=== PATIENT | female | born 1995 | race Caucasian/White ===

== ENCOUNTER 2019-11-18 15:18 | Outpatient (RCR) | payer OTHER, SELFPAY ==
[2019-11-14] MEDS: RHO(D) IMMUNE GLOBULIN 300 MCG SYRINGE IM (16:15)
== END 2020-02-12 23:59 | disposition home or self-care (01) ==
LOC: ANHLAB 15:18
PROVIDERS: Visit Provider Advanced Practice Midwife
DX: O20.9 Hemorrhage in early pregnancy, unspecified (principal); Z29.13 Encounter for prophylactic Rho(D) immune globulin; O36.0990 Maternal care for other rhesus isoimmunization, unspecified trimester, not applicable or unspecified; Z3A.00 Weeks of gestation of pregnancy not specified
CPT/HCPCS: 36415; 84702; 90384; 96372; J2790

== ENCOUNTER 2020-08-18 16:25 | Emergency (ER) | payer BC, MEDICAID, SELFPAY ==
[2020-08-18 16:28] VITALS: BP 149/72; PULSE 88; RESP 17; TEMP 36.6; O2SAT 98
--- NOTE | 2020-08-18 16:36 | ED.FEMALEGU ---
HPI - Female Genitourinary General Chief complaint: Vaginal Bleeding Stated complaint: , vag bleeding Time Seen by Provider: 08/18/20 16:29 History of Present Illness HPI Narrative: 2 positive home tests. Began having vaginal bleeding today. Slightly heavier than a normal period. She is not supposed to start her period for 2 days. She has mild pelvic cramping as well. Related Data Allergies Allergy/AdvReac Type Severity Reaction Status Date / Time No Known Allergies Allergy Verified 08/18/20 16:27 Review of Systems Review of Systems: All systems reviewed & are unremarkable except as noted in HPI and below PMFSH Past Medical History Medical History Spontaneous Surgical History Surgical History No history of previous surgery Social History Social History Smoking status: Never smoker Alcohol intake: former Gender identity (if verbalized by the patient): Female Exam Const: General: healthy appearing, no acute distress and alert Orientation/consciousness: patient oriented x3 HENMT: Head: normal to inspection Resp: Effort & Inspection: normal respiratory effort Auscultation: clear to auscultation bilaterally, no rales, no rhonchi and no wheezes Cardio: Jugular venous distension: no JVD Rate: regular rate Rhythm: regular rhythm Heart sounds: no murmurs GI: Inspection: non-distended GI Palp: Yes Soft to palpation and No Tenderness to palpation present (GI) Skin: General skin exam: normal color Neuro: General: patient oriented x3 and moves all extremities Speech: normal speech Extrem: General: no edema Psych: Appearance: well kempt Affect: normal affect Course Vital Signs Vital signs: Vital Signs Temperature 36.6 C 08/18/20 16:28 Pulse Rate 88 08/18/20 16:28 Respiratory Rate 17 08/18/20 16:28 Blood Pressure 149/72 H 08/18/20 16:28 Pulse Oximetry 98 08/18/20 16:28 Temperature 36.6 C 08/18/20 16:28 Pulse Rate 88 08/18/20 16:28 Respiratory Rate 17 08/18/20 16:28 Blood Pressure 149/72 H 08/18/20 16:28 Pulse Oximetry 98 08/18/20 16:28 MDM - Female Genitourinary MDM Narrative Medical decision making narrative: Urine preg negative, Quant undetectable. Almost certainly false positives. She seems to be starting a normal period. Lab Data Attestation: I reviewed the patient's lab results. Result diagrams: 08/18/20 16:39 Labs: Lab Results 08/18/20 08/18/20 08/18/20 Range/Units 16:39 16:39 16:39 WBC 7.8 (4.5-10.0) K/mm3 RBC 4.42 (4.2-5.4) M/mm3 Hgb 12.3 (12.0-15.0) g/dL Hct 37.3 (37.0-47.0) % MCV 84.4 (80-100) fl MCH 27.8 (26-34) pg MCHC 33.0 (32-36) g/dl RDW 12.9 (11.5-14.5) % Plt Count 291 (150-375) k/mm3 MPV 11.7 H (7.4-10.4) fl Immature Gran % (Auto) 0.3 (0-0.5) % Neut % (Auto) 61.0 (45.5-73.1) % Lymph % (Auto) 29.2 (18.3-44.2) % Baldwin % (Auto) 6.4 (2.6-8.5) % Eos % (Auto) 2.8 (0-4.4) % Baso % (Auto) 0.3 (0.2-1.2) % Lymph # (Auto) 2.27 (0.9-3.2) K/mm3 Baldwin # (Auto) 0.5 (0.1-0.6) K/mm3 Eos # (Auto) 0.2 (0-0.3) K/mm3 Baso # (Auto) 0.0 (0.0-0.1) K/mm3 Abs Immat Gran (auto) 0.02 (0.00-0.031) K/mm3 Absolute Neuts (auto) 4.8 (1.3-6.7) K/mm3 Absolute Nucleated RBC 0.0 (0.0-0.012) K/mm3 Nucleated RBC % 0.0 (0.0-0.2) % Beta HCG, Quant < 2.39 mIU/ML Blood Type A Negative Antibody Screen Negative Screen Not Reportable Baby's Blood Type Not Reportable Baby's [place] Not Reportable Doses of RhIg Required 0 Discharge Plan Discharge Clinical Impression: Vaginal bleeding Patient Disposition: Home, Self-Care Condition: Stable Follow-up/Referrals: Chong Naylor MD [Primary Care Pro
[2020-08-18 16:45] LABS: Basophils Percent Auto 0.3 % (0.2-1.2); Eosinophils Absolute Auto 0.2 K/mm3 (0-0.3); Eosinophils Percent Auto 2.8 % (0-4.4); Hematocrit 37.3 % (37.0-47.0); Hemoglobin 12.3 g/dL (12.0-15.0); Immature Granulocyte Absolute 0.02 K/mm3 (0.00-0.031); Immature Granulocyte Percent A 0.3 % (0-0.5); Lymphocytes Absolute Auto 2.27 K/mm3 (0.9-3.2); Lymphocytes Percent Auto 29.2 % (18.3-44.2); Mean Corpuscular Hemoglobin 27.8 pg (26-34); Mean Corpuscular Volume 84.4 fl (80-100); Mean Platelet Volume 11.7 fl (7.4-10.4); Monocytes Absolute Auto 0.5 K/mm3 (0.1-0.6); Monocytes Percent Auto 6.4 % (2.6-8.5); Neutrophils Absolute Auto 4.8 K/mm3 (1.3-6.7); Platelet Count Result 291 k/mm3 (150-375); Red Blood Count 4.42 M/mm3 (4.2-5.4); Red Cell Distribution Width 12.9 % (11.5-14.5); White Blood Count 7.8 K/mm3 (4.5-10.0)
[2020-08-18 17:14] LABS: Beta HCG Quantitative < 2.39 mIU/ML
== END 2020-08-18 18:05 | disposition home or self-care (01) ==
PROVIDERS: Emergency Provider Emergency Medicine; PCP Obstetrics & Gynecology
DX: N93.9 Abnormal uterine and vaginal bleeding, unspecified (principal)
CPT/HCPCS: 36415; 81025; 84702; 85025; 85461; 99284

== ENCOUNTER 2021-04-18 12:59 | Outpatient (RCR) | payer BC, MEDICAID, SELFPAY ==
[2021-04-16 11:38] LABS: Beta HCG Quantitative 266.06 mIU/ML
[2021-04-16] MEDS: RHO(D) IMMUNE GLOBULIN 300 MCG/2 ML SYRINGE IM (17:58)
[2021-04-21 08:46] LABS: Progesterone 28.6 ng/mL (***)
== END 2021-07-15 23:59 | disposition home or self-care (01) ==
LOC: ANHLAB 12:59
PROVIDERS: PCP Obstetrics & Gynecology; Visit Provider Obstetrics & Gynecology
DX: O20.0 Threatened abortion (principal); O36.0190 Maternal care for anti-D [Rh] antibodies, unspecified trimester, not applicable or unspecified; Z29.13 Encounter for prophylactic Rho(D) immune globulin; Z3A.00 Weeks of gestation of pregnancy not specified
CPT/HCPCS: 36415; 84144; 84702; 85461; 86880; 86902; 90384; 96372; J2790

== ENCOUNTER 2021-07-30 10:53 | Outpatient (RCR) | payer BC, SELFPAY ==
[2021-07-30] MEDS: RHO(D) IMMUNE GLOBULIN 300 MCG/2 ML SYRINGE IM (17:12)
== END 2021-07-30 11:00 | disposition home or self-care (01) ==
LOC: ANHLAB 10:53
PROVIDERS: PCP Obstetrics & Gynecology; Visit Provider Obstetrics & Gynecology
DX: Z29.13 Encounter for prophylactic Rho(D) immune globulin (principal); O26.859 Spotting complicating pregnancy, unspecified trimester; Z3A.00 Weeks of gestation of pregnancy not specified
CPT/HCPCS: 36415; 85461; 90384; 96372; J2790

== ENCOUNTER 2021-10-24 12:49 | Outpatient (RCR) | payer BC, SELFPAY ==
[2021-10-24] MEDS: RHO(D) IMMUNE GLOBULIN 300 MCG/2 ML SYRINGE IM (15:24)
== END 2021-10-24 12:50 | disposition home or self-care (01) ==
LOC: ANHLAB 12:49
PROVIDERS: PCP Obstetrics & Gynecology; Visit Provider Obstetrics & Gynecology
DX: Z29.13 Encounter for prophylactic Rho(D) immune globulin (principal); O36.0130 Maternal care for anti-D [Rh] antibodies, third trimester, not applicable or unspecified; Z3A.00 Weeks of gestation of pregnancy not specified
CPT/HCPCS: 36415; 85461; 90384; 96372; J2790

== ENCOUNTER 2021-12-23 16:53 | Inpatient (IN) | payer BC, SELFPAY ==
[2021-12-23] VITALS (64 sets, daily range): BP systolic 76–144; BP diastolic 45–94; PULSE 68–117; RESP 18–20; TEMP 36.5–36.8; O2SAT 98–100
--- NOTE | 2021-12-23 16:53 | LDADM ---
This patient, Felicia Wilder, was admitted to Labor/Delivery/Recovery 108 on 12/23/21 at 16:53. Plans for labor, pain management and were discussed with patient. Patient/family oriented to hospital policies and general routines including ID bracelet, bed and alarms, visiting hours, pain management, procedures, bathroom and other care routines, personal items, smoking policy, room service/diet and guest tray routines, security routines, and visiting hours. Patient/Family are encouraged to report perceived risks to care and to ask questions if they do not understand what they are told or what they should do. See OBIX for further documentation.
[2021-12-23 17:56] LABS: Basophils Percent Auto 0.1 % (0.2-1.2); Eosinophils Absolute Auto 0.1 K/mm3 (0-0.3); Eosinophils Percent Auto 0.8 % (0-4.4); Hematocrit 35.2 % (37.0-47.0); Immature Granulocyte Absolute 0.05 K/mm3 (0.00-0.031); Immature Granulocyte Percent A 0.5 % (0-0.5); Lymphocytes Percent Auto 12.9 % (18.3-44.2); Mean Corpuscular HGB Conc 34.1 g/dl (32-36); Mean Corpuscular Hemoglobin 30.2 pg (26-34); Mean Corpuscular Volume 88.4 fl (80-100); Mean Platelet Volume 12.8 fl (7.4-10.4); Monocytes Absolute Auto 0.4 K/mm3 (0.1-0.6); Monocytes Percent Auto 4.4 % (2.6-8.5); Neutrophils Absolute Auto 8.2 K/mm3 (1.3-6.7); Neutrophils Percent Auto 81.3 % (45.5-73.1); Platelet Count Result 183 k/mm3 (150-375); Red Blood Count 3.98 M/mm3 (4.2-5.4); Red Cell Distribution Width 12.5 % (11.5-14.5)
[2021-12-23] MEDS: OXYTOCIN 30 UNITS/NS 500 ML 30 UNITS/500 ML BAG IV CONT (18:07)
[2021-12-23] MEDS: AMPICILLIN 2 GM/NS 100 ML 2 GM/100 ML BAG IVPB (18:08)
[2021-12-23] MEDS: LACTATED RINGERS 1,000 ML 125 ML IV CONT ×3 (18:08→23:45)
--- NOTE | 2021-12-23 18:09 | P.PNAN_ITS ---
Anes - Eval Pre Procedure Procedure: labor epidural Date/Time: 12/23/21 18:09 Surgeon: enzo Pre Op Diagnosis: IOL Patient Data Age: 26 Gender: F Height: Weight: Last Vital Signs Pulse 95 12/23/21 18:01 BP 120/73 12/23/21 18:01 Allergies Allergy/AdvReac Type Severity Reaction Status Date / Time No Known Allergies Allergy Verified 08/18/20 16:27 Home Medications Medication Instructions Recorded Confirmed Type PNV cmb#95-ferrous fumarate-FA 1 tablet PO DAILY 11/21/21 11/21/21 History [] ferrous sulfate [Iron (ferrous 325 mg PO DAILY 11/21/21 11/21/21 History sulfate)] Laboratory Tests 12/23/21 12/23/21 17:33 17:33 WBC 10.0 K/mm3 K/mm3 (4.5-10.0) RBC 3.98 M/mm3 L M/mm3 (4.2-5.4) Hgb 12.0 g/dL g/dL (12.0-15.0) Hct 35.2 % L % (37.0-47.0) MCV 88.4 fl fl (80-100) MCH 30.2 pg pg (26-34) MCHC 34.1 g/dl g/dl (32-36) RDW 12.5 % % (11.5-14.5) Plt Count 183 k/mm3 k/mm3 (150-375) MPV 12.8 fl H fl (7.4-10.4) Immature Gran % (Auto) 0.5 % % (0-0.5) Neut % (Auto) 81.3 % H % (45.5-73.1) Lymph % (Auto) 12.9 % L % (18.3-44.2) Sunflower % (Auto) 4.4 % % (2.6-8.5) Eos % (Auto) 0.8 % % (0-4.4) Baso % (Auto) 0.1 % L % (0.2-1.2) Lymph # (Auto) 1.30 K/mm3 K/mm3 (0.9-3.2) Sunflower # (Auto) 0.4 K/mm3 K/mm3 (0.1-0.6) Eos # (Auto) 0.1 K/mm3 K/mm3 (0-0.3) Baso # (Auto) 0.0 K/mm3 K/mm3 (0.0-0.1) Abs Immat Gran (auto) 0.05 K/mm3 H K/mm3 (0.00-0.031) Absolute Neuts (auto) 8.2 K/mm3 H K/mm3 (1.3-6.7) Absolute Nucleated RBC 0.0 K/mm3 K/mm3 (0.0-0.012) Nucleated RBC % 0.0 % % (0.0-0.2) RPR Pending Patient hx anesthesia problems: none Family hx anesthesia problems: none Results Review: All pre-operative results and documents have been reviewed as part of the pre-operative evaluation. [facility] Past Medical History Medical History Spontaneous Surgical History Surgical History No history of previous surgery Family History Family History (Updated 11/21/21 @ 15:45 by Parminder Johnson RN) Father Diabetes mellitus Social History Social History Smoking status: Never smoker Alcohol intake: former Substance use: never Gender identity (if verbalized by the patient): Female Spiritual care concerns: No Exam Day of Procedure 12/23/21 18:09
[2021-12-23] MEDS: fentaNYL CITRATE INJ (*CRX) 100 MCG/2 ML VIAL 50 MCG IV PUSH (21:44)
[2021-12-23] MEDS: AMPICILLIN 1 GM/NS 50 ML 1 GM/50 ML BAG IVPB (22:15)
[2021-12-24] VITALS (168 sets, daily range): BP systolic 91–141; BP diastolic 62–92; PULSE 72–143; RESP 16–18; TEMP 36.1–38.1; O2SAT 97–100; BMI 32.0
[2021-12-24] MEDS: LACTATED RINGERS 1,000 ML 125 ML IV CONT ×2 (00:33→06:08)
[2021-12-24] MEDS: AMPICILLIN 1 GM/NS 50 ML 1 GM/50 ML BAG IVPB ×2 (02:02→06:04)
[2021-12-24] MEDS: ONDANSETRON INJ 4 MG/2 ML VIAL IV PUSH (05:22)
[2021-12-24 06:02] LABS: Rapid Plasma Reagin Non-Reactive (NonReactive)
--- NOTE | 2021-12-24 07:30 | PM.IMHP ---
H&P: HPI History of Present Illness Date/Time: 12/24/21 07:30 Chief Complaint: induction of labor Narrative: Felicia is a 26yo at40.2 for induction. uncomplicated except GBS pos. Pitocin since last night. Is now complete and +1. Review of Systems Review of Systems: All systems reviewed & are unremarkable except as noted in HPI and below PMFSH Past Medical History Medical History Spontaneous Surgical History Surgical History No history of previous surgery Family History Family History (Updated 11/21/21 @ 15:45 by Parminder Johnson RN) Father Diabetes mellitus Social History Social History Smoking status: Never smoker Alcohol intake: former Substance use: never Gender identity (if verbalized by the patient): Female Spiritual care concerns: No Meds Home Medications and Allergies Home Medications Medication Instructions Recorded Confirmed Type PNV cmb#95-ferrous fumarate-FA 1 tablet PO DAILY 11/21/21 11/21/21 History [] ferrous sulfate [Iron (ferrous 325 mg PO DAILY 11/21/21 11/21/21 History sulfate)] Allergies Allergy/AdvReac Type Severity Reaction Status Date / Time No Known Allergies Allergy Verified 08/18/20 16:27 Vital Signs Vital Signs - 24 hr 12/23/21 17:18 12/23/21 17:38 12/23/21 17:46 Temperature Pulse Rate 104 H 96 94 Respiratory Rate Blood Pressure 132/77 128/78 131/76 Pulse Oximetry 12/23/21 18:00 12/23/21 18:01 12/23/21 18:31 Temperature 98.3 F Pulse Rate 95 86 Respiratory Rate Blood Pressure 120/73 136/86 Pulse Oximetry 12/23/21 18:46 12/23/21 19:01 12/23/21 19:31 Temperature Pulse Rate 89 87 82 Respiratory Rate Blood Pressure 133/78 141/89 H 124/73 Pulse Oximetry 12/23/21 19:46 12/23/21 20:00 12/23/21 20:01 Temperature 97.7 F Pulse Rate 78 87 Respiratory Rate 18 Blood Pressure 134/83 128/67 Pulse Oximetry 12/23/21 20:32 12/23/21 20:47 12/23/21 21:01 Temperature Pulse Rate 77 75 85 Respiratory Rate Blood Pressure 76/51 L 121/66 130/79 Pulse Oximetry 12/23/21 21:16 12/23/21 22:03 12/23/21 22:04 Temperature Pulse Rate 85 96 95 Respiratory Rate Blood Pressure 132/68 124/62 134/89 Pulse Oximetry 98 12/23/21 22:06 12/23/21 22:08 12/23/21 22:11 Temperature Pulse Rate 78 97 87 Respiratory Rate Blood Pressure 144/72 H 113/62 119/71 Pulse Oximetry 99 12/23/21 22:13 12/23/21 22:16 12/23/21 22:18 Temperature Pulse Rate 95 84 88 Respiratory Rate Blood Pressure 104/83 121/76 127/76 Pulse Oximetry 100 99 12/23/21 22:21 12/23/21 22:23 12/23/21 22:26 Temperature Pulse Rate 77 77 80 Respiratory Rate Blood Pressure 122/61 122/57 L 114/61 Pulse Oximetry 99 12/23/21 22:28 12/23/21 22:31 12/23/21 22:33 Temperature Pulse Rate 77 75 75 Respiratory Rate Blood Pressure 121/67 122/67 118/66 Pulse Oximetry 99 100 12/23/21 22:36 12/23/21 22:38 12/23/21 22:41 Temperature Pulse Rate 80 82 82 Respiratory Rate Blood Pressure 119/67 117/66 124/74 Pulse Oximetry 99 12/23/21 22:43 12/23/21 22:46 12/23/21 22:48 Temperature Pulse Rate 72 75 81 Respiratory Rate Blood Pressure 120/62 117/68 122/76 Pulse Oximetry 99 99 12/23/21 22:51 12/23/21 22:53 12/23/21 22:56 Temperature Pulse Rate 79 79 117 H Respiratory Rate Blood Pressure 130/78 130/74 131/83 Pulse Oximetry 100 12/23/21 22:58 12/23/21 23:01 12/23/21 23:03 Temperature Pulse Rate 79 78 71 Respiratory Rate Blood Pressure 123/69 127/74 119/64 Pulse Oximetry 100 100 12/23/21 23:06 12/23/21 23:08 12/23/21 23:11 Temperature Pulse Rate 86 91 78 Respiratory Rate Blood Pressure 122/68 129/80 123/71 Pulse Oximetry 100
--- NOTE | 2021-12-24 09:51 | PM.OBPRVD ---
OB - Delivery Note Procedure Delivery date: 12/24/21 Procedure: normal spontaneous vaginal delivery Events: Elective Induction of Labor Induction method: Per Pitocin Protocol Delivery monitor: External FHT and External Uterine Laceration Description: Perineal - 2nd Degree Delivery repair: vicryl Quantitative Blood Loss (ml): 225 Anesthesia type: Epidural Disposition: floor Narrative: With adequate expulsive efforts by the mother, the baby's head was delivered OA. The baby's anterior shoulder was delivered under the pubic symphysis without difficulty. The posterior shoulder and the rest of the baby delivered without difficulty. The infant was placed on the mothers chest and suctioned and stimulated. The cord was clamped and cut after 60 seconds. Mother and baby both stable. After delivery of the placenta, trailing retained membranes were identified and removed in 4 sections with a ring forceps. [place] Baby Date of : 12/24/21 Time of : 09:32 Weeks of gestation at delivery: 40 Infant gender: Female Weight (pounds): 7 Weight (ounces): 8 presentation: vertex Placenta delivery description: Spontaneous and Manual Removal (of trailing membranes) Cord Vessel Description: 3 Vessels and Delayed Cord Clamping score one minute: 9 score five minutes: 9
[2021-12-24] MEDS: OXYTOCIN 30 UNITS/NS 500 ML 30 UNITS/500 ML BAG 125 UNITS IV CONT (10:22)
[2021-12-24] MEDS: WITCH HAZEL 40 PADS 1 PAD TOPICAL (10:49)
[2021-12-24] MEDS: BENZOCAINE 20% AER SPR (*SP) 56 GM CAN 1 SPRAY TOPICAL (10:50)
[2021-12-24] MEDS: IBUPROFEN 600 MG TABLET PO ×2 (10:50→16:35)
--- NOTE | 2021-12-24 15:27 | OBPPTRN ---
Patient transferred to post room #284 via wheelchair. Support person present. Oriented to unit, room, information board, rooming in, admission packet and security measures. Patient verbalizes understanding.
[2021-12-24] MEDS: DOCUSATE SODIUM 100 MG CAPSULE PO (16:35)
[2021-12-24] MEDS: ACETAMINOPHEN 325 MG TABLET 650 MG PO (16:35)
[2021-12-25] MEDS: IBUPROFEN 600 MG TABLET PO ×4 (01:17→22:41)
[2021-12-25] MEDS: ACETAMINOPHEN 325 MG TABLET 650 MG PO ×4 (01:18→22:43)
[2021-12-25 04:45] VITALS: BP 119/81; PULSE 91; RESP 16; TEMP 36.6
[2021-12-25 05:16] LABS: Hematocrit 28.1 % (37.0-47.0); Hemoglobin 9.7 g/dL (12.0-15.0)
--- NOTE | 2021-12-25 06:54 | P.PNOB_ITS ---
OB - PN: Subj Subjective Date/time seen: 12/25/21 06:54 Patient comments: no complaints and pain well controlled baby status: doing well and bottle feeding well [place] feeding status: exclusively bottle feeding OB - PN: Obj Data Labs CBC & Chem 7: 12/25/21 04:58 Labs: Laboratory Results - last 24 hr 12/25/21 12/25/21 04:58 04:58 Hgb 9.7 L Hct 28.1 L Blood Type A Negative Antibody Screen Negative OB - PN A/P Assessment and Plan (1) , delivered: Code(s): O80 - Encounter for full-term uncomplicated delivery Status: Acute Plan day: 1 Plan: routine care Time Spent With Patient Time: Total time spent is greater than 50% in coordination of care (as documented) at patient's floor/unit and/or counseling patient: Time with patient: less than 15 minutes Exam Narrative: NAD abdomen soft, nontender, fundus firm below the umbilicus Extremities nontender, 1+ edema
--- NOTE | 2021-12-25 07:00 | PC.NURSE ---
PT introductions made and plan of care discussed per post , pain management, bottle feeding, daily care activities. PT and spouse both recipients of such instructions. no barriers to learning identified and pt received instructions per one to one discussion, mom baby care guide and demonstrations for this shift. Pt verbalized understanding of such care.
--- NOTE | 2021-12-25 07:34 | WPDANLDPN2 ---
Anes-Prog Note L&D Date/Time: 12/25/21 07:34 Comfortable throughout: labor and delivery Neuraxial method: epidural Epidural/Spinal procedure site: clean & non-tender Neuro status: Neuro function grossly intact. Cardiovascular status: normal Respiratory status: normal Airway patency: baseline Mental status: baseline Post-Op hydration status: normal Vital Signs: Last Vital Signs Temp 36.6 C 12/25/21 04:45 Pulse 91 12/25/21 04:45 Resp 16 12/25/21 04:45 BP 119/81 12/25/21 04:45 Pulse Ox 99 12/24/21 16:30 Pain score (VAS): 11/25 I/O: Intake & Output 12/24/21 12/24/21 12/25/21 15:59 23:59 07:59 Intake Total 1600 Output Total 225 Balance 1375 Post-procedural complaints: none Patient feedback: Patient satisfied with anesthetic care.
[2021-12-25 09:30] VITALS: BP 127/83; PULSE 79; RESP 18; TEMP 36.7; O2SAT 98
[2021-12-25] MEDS: DOCUSATE SODIUM 100 MG CAPSULE PO ×2 (09:30→16:24)
[2021-12-25] MEDS: POLYSACCHARIDE IRON COMPLEX 150 MG CAPSULE PO ×2 (09:30→16:26)
[2021-12-25] MEDS: RHO(D) IMMUNE GLOBULIN 300 MCG/2 ML SYRINGE IM (10:26)
[2021-12-25] MEDS: DIBUCAINE 1% OINTMENT 30 GM TUBE 1 APPLIC TOPICAL (10:26)
[2021-12-25 18:31] VITALS: BP 119/75; PULSE 82; RESP 18; TEMP 36.7
[2021-12-26 07:30] VITALS: BP 136/94; PULSE 71; RESP 18; TEMP 37.7; O2SAT 99
--- NOTE | 2021-12-26 07:47 | PM.OBPNVD ---
OB - PN: Subj Subjective Date/time seen: 12/26/21 07:47 Patient comments: no complaints baby status: doing well OB - PN: Obj Data Labs CBC & Chem 7: 12/25/21 04:58 Labs: Laboratory Results - last 24 hr 12/25/21 04:58 Blood Type A Negative Antibody Screen Negative Screen Negative Baby's Blood Type A pos Baby's [place] Negative Doses of RhIg Required 1 OB - PN A/P Plan day: 2 Plan: routine care and discharge home (F/U in 4 weeks) Time Spent With Patient Time: Total time spent is greater than 50% in coordination of care (as documented) at patient's floor/unit and/or counseling patient: Time with patient: less than 15 minutes Review of Systems Review of Systems: All systems reviewed & are unremarkable except as noted in HPI and below Exam Narrative: Fundus firm and vaginal flow controlled. No lower ext redness, warmth, or edema. Negative homans. Const: General: comfortable Chest: Breast/axilla inspection: normal inspection of the breasts Resp: Effort & Inspection: normal respiratory effort Cardio: Rate: regular rate GI: GI Palp: Yes Soft to palpation Psych: Appearance: grossly normal Affect: normal affect Attitude: cooperative Thought content: Yes Normal thought content present Judgement: Good judgement present (Psych)
[2021-12-26] MEDS: DOCUSATE SODIUM 100 MG CAPSULE PO (08:57)
[2021-12-26] MEDS: POLYSACCHARIDE IRON COMPLEX 150 MG CAPSULE PO (08:58)
[2021-12-26] MEDS: IBUPROFEN 600 MG TABLET PO (08:58)
[2021-12-26] MEDS: ACETAMINOPHEN 325 MG TABLET 650 MG PO (08:59)
[2021-12-26 10:09] VITALS: BP 128/87
--- NOTE | 2021-12-26 10:18 | PC.NURSE ---
Patient to view the discharge video Mother & Baby Care, The First Two Weeks online. Patient was given the opportunity and encouraged to ask questions. Patient verbalized understanding of information shared and has been given the mother/baby guide for home reference.
[2021-12-27 10:24] VITALS: BP 142/84; PULSE 75; RESP 20; TEMP 37.4; O2SAT 100
--- NOTE | 2022-01-23 07:42 | P.DS_ITS ---
DS: Admitting Diagnosis Discharge Date 12/26/21 Admitting Diagnosis Labor OB - DS: Summary OB Procedures : None OB Procedures Intrapartum: Spontaneous Vag Delivery OB Procedures: : None Time Spent with Patient Time attestation: Total time spent providing and/or coordinating discharge services: Discharge Plan Discharge Attending physician on discharge: Linda Edgar Consulting providers: Theodora Major Discharging Clinician: Theodora Major Patient Disposition: Home, Self-Care Activity: pelvic rest Diet: as tolerated Discharge Instructions: Education: Mom and Baby Guide Given to: Mother Follow-Up: Call your delivering provider's office for an appointment to be seen in: 4 Weeks Mom and baby should come to the [facility] for the follow-up appointment. Appointment Date/Time: December 27, 2021 at 10:00 am What to expect at your follow-up visit: Physical Assessment Call [phone] if you are unable to keep your appointment time. BREAST CARE: * Bottle Feeding: * May apply ice packs PERINEAL CARE: * Until bleeding stops, use your alex bottle after urinating * Change your pad frequently throughout the day * You may take sitz baths several times a day (fill your bathtub with warm water and soak for 20 minutes.) Do NOT bathe in the water * No tub baths until seen by your physician - You may shower ACTIVITY: * Rest as much as possible. * Do not exercise or lift anything heavier than your baby (such as laundry or other children.) * Avoid stairs or driving as much as possible. * Do not put anything into the vagina. No douching, tampons, or sexual activity until seen by physician. NOTIFY PHYSICIAN IF YOU HAVE ANY QUESTIONS OR IF ANY OF THE FOLLOWING SYMPTOMS OCCUR: * If your episiotomy/perineum becomes red, swollen, or more painful than what you have experienced in the hospital. * If your vaginal bleeding becomes foul smelling. * If your vaginal bleeding becomes more heavy than a period or if your bleeding changes from pink to bright red. However, you may pass an occasional walnut- sized clot once or twice for the first week . * If you experience a sharp, shooting pain in you calves. * If you discover a hard, reddened area on your breast or if you experience flu- like symptoms. DIET: * Eat regular, well-balanced meals. * Drink plenty of fluids daily. If , drink to thirst. Patient Instructions: Antibiotic Form Stand Alone Forms: General Discharge Information Follow-up/Referrals: Linda Edgar MD [Physician] - Discharge Medications: Continued ferrous sulfate [Iron (ferrous sulfate)] 325 mg (65 mg iron) Tablet 325 mg PO DAILY RF: 0 PNV cmb#95-ferrous fumarate-FA [] 28 mg iron- 800 mcg Tablet 1 tablet PO DAILY RF: 0 Date of admission: 12/23/21 16:53 Primary Care Provider: PHYSICIAN,TEXTILE CHEMIST Admitting Provider: Linda Edgar Attending physician on admission: Linda Edgar Condition: Stable
== END 2021-12-26 11:16 | disposition home or self-care (01) | DRG 807 ==
LOC: ANHLDR 17:21 → ANHOB2 12-24 14:40
PROVIDERS: Admitting Provider Obstetrics & Gynecology; Visit Provider Obstetrics & Gynecology
DX: O99.824 Streptococcus B carrier state complicating childbirth (principal); Z37.0 Single live birth; O76 Abnormality in fetal heart rate and rhythm complicating labor and delivery; O70.1 Second degree perineal laceration during delivery; Z3A.40 40 weeks gestation of pregnancy; O73.0 Retained placenta without hemorrhage
CPT/HCPCS: 36415; 85014; 85018; 85025; 85461; 86592; 86850; 86900; 86901; 90384; A9270; J0131; J0290; J2405; J2590; J2790; J2795; J3010; J7120

== ENCOUNTER 2023-06-29 12:00 | Outpatient (RCR) | payer BC, SELFPAY ==
[2023-06-29] MEDS: RHO(D) IMMUNE GLOBULIN 300 MCG/2 ML SYRINGE IM (16:47)
== END 2023-09-27 23:59 | disposition home or self-care (01) ==
LOC: ANHLAB 12:00
PROVIDERS: Visit Provider Obstetrics & Gynecology
DX: Z29.13 Encounter for prophylactic Rho(D) immune globulin (principal); O36.0130 Maternal care for anti-D [Rh] antibodies, third trimester, not applicable or unspecified; Z3A.00 Weeks of gestation of pregnancy not specified
CPT/HCPCS: 36415; 85461; 86850; 86900; 86901; 90384; 96372; J2790

== ENCOUNTER 2023-09-16 13:35 | Outpatient (RCR) | payer BC, SELFPAY ==
[2023-09-16 14:18] LABS: Hematocrit 34.3 % (37.0-47.0); Hemoglobin 11.4 g/dL (12.0-15.0)
[2023-09-16 15:08] LABS: HIV 1/2 Ab P24 Ag Result Negative (Negative)
[2023-09-17] MEDS: RHO(D) IMMUNE GLOBULIN 300 MCG/2 ML SYRINGE IM (14:00)
== END 2023-12-15 23:59 | disposition home or self-care (01) ==
LOC: ANHLAB 13:35
PROVIDERS: Visit Provider Advanced Practice Midwife
DX: Z11.4 Encounter for screening for human immunodeficiency virus [HIV] (principal); Z29.13 Encounter for prophylactic Rho(D) immune globulin; O36.0190 Maternal care for anti-D [Rh] antibodies, unspecified trimester, not applicable or unspecified; Z3A.00 Weeks of gestation of pregnancy not specified
CPT/HCPCS: 36415; 85014; 85018; 85461; 86703; 86850; 86880; 86900; 86901; 86902; 90384; 96372; G0432; J2790

== ENCOUNTER 2023-10-23 10:32 | Emergency (ER) | payer BC, SELFPAY ==
[2023-10-23] VITALS (11 sets, daily range): BP systolic 120–135; BP diastolic 66–86; PULSE 74–113; RESP 14–20; TEMP 36.4–36.8; O2SAT 95–98
--- NOTE | 2023-10-23 11:47 | ECG_ITS ---
Measurements Intervals [place] Rate: 83 P: 37 NH: 166 QRS: 85 QRSD: 99 T: 38 QT: 341 QTc: 401 Interpretive Statements SINUS RHYTHM NO PREVIOUS ECG AVAILABLE FOR COMPARISON Electronically Signed On 10-24-2023 13:01:20 [employer]GER [employer]OL[employer] by Familia Rudolph M.D.
--- NOTE | 2023-10-23 12:21 | ED.SOB ---
HPI - SOB/Dyspnea General Chief Complaint: Shortness of Breath/Dyspnea Stated Complaint: diff breathing x 2 weeks/36 weeks preg Time Seen by Provider: 10/23/23 12:05 History of Present Illness HPI Narrative: The patient is a 28-year-old female, approximately 36 weeks here with shortness of breath. Patient notes that she has been having some intermittent worsening shortness of breath over the last couple of months. She has discussed it with her OBGYN who has advised her to follow it and present to the emergency department if they worsen. She notes that a couple of weeks ago she had upper respiratory infection which seemed to improve initially but began again over the last 2 days. She does note that she has had some sick contacts at home with other family members and they seemed to be bouncing around respiratory symptoms to each other. She denies any associated chest pain, lightheadedness, leg swelling. No prior history of cardiac disease or cardiomyopathy during her prior that she is aware of. She denies fever chills. She has had a productive cough as well as some nasal congestion. No prior PE or DVT. Related Data Home Medications Medication Instructions Recorded Confirmed ferrous sulfate 325 mg (65 mg 325 mg PO DAILY 11/21/21 11/21/21 iron) tablet (Iron (ferrous sulfate)) vit no.95-ferrous 1 tablet PO DAILY 11/21/21 11/21/21 fumarate 28 mg-folic acid 800 mcg tablet () Allergies Allergy/AdvReac Type Severity Reaction Status Date / Time No Known Allergies Allergy Verified 12/27/21 15:44 Review of Systems Review of Systems: All systems reviewed & are unremarkable except as noted in HPI and below PMFSH Past Medical History Medical History (Updated 10/23/23 @ 14:52 by Yamile Rayo MD) Spontaneous Surgical History Surgical History (System 12/27/21 @ 15:44 by Rosalio Gregorio) No history of previous surgery Family History Family History (System 12/27/21 @ 15:44 by Rosalio Gregorio) Father Diabetes mellitus Social History Social History (System 12/27/21 @ 15:44 by Rosalio Gregorio) Smoking status: Never smoker Alcohol intake: former Substance use: never Gender identity (if verbalized by the patient): Female Spiritual care concerns: No Exam Narrative: GENERAL: Well-appearing, well-nourished, and in no acute distress. HEAD: Normocephalic, atraumatic. EYES: PERRLA and EOMI. ENT: Nares clear. Nasal congestion present. Mucous membranes moist. NECK: Supple. CHEST: Good air movement bilaterally, faint expiratory wheeze in the right upper lobe. No respiratory distress. HEART: Regular rate and rhythm. Normal peripheral pulses. ABDOMEN: Soft, nontender, Gravid EXTREMITIES: Normal range of motion. No lower extremity edema, no calf tenderness. SKIN: Warm, dry, no rash. NEURO: No focal deficits. Alert and oriented x3. PSYCH: Normal mood and affect. Course Course Emergency Course: Chart review performed. Patient is 36 weeks and having sob worse over the last 2 months after a URI. Feels as though she is wheezing. Triage vitals show some tachycardia at 113 which improved to 91, normal range BPs. O2 saturation 96-97% on room air. Only other notes in our system recently are OBGYN reports over a year ago. Patient seen evaluated, nontoxic appearing. She does have a wheeze present in the right upper lobe. extensive discussion regarding plan of care given desire to minimize radiation during . Most likely patient has a viral respiratory infection that she seems to be bouncing back and forth among family members. Anticipate the severity of this is exacerbated by her late term . Patient has no leg swelling, low suspicion for -induced cardiomyopathy, discuss she can follow this with her OBGYN and discussed indication for workup. I believe that a PE is unlikely given presence of cough and congestion. Will d
[2023-10-23] MEDS: ALBUTEROL SULFATE NEB 2.5 MG/3 ML INH INHALATION (13:49)
[2023-10-23] MEDS: IPRATROPIUM BR 0.02% INH SOLN 0.5 MG/2.5 ML VIAL INHALATION (13:49)
[2023-10-23 14:40] LABS: Influenza A QL RT-PCR Negative (Negative); Influenza B QL RT-PCR Negative (Negative); RSV RNA, RT-PCR Positive (Negative); SARS-CoV-2 RNA PCR Negative (Negative)
== END 2023-10-23 14:57 | disposition home or self-care (01) ==
PROVIDERS: Emergency Provider Student in an Organized Health Care Education/Training Program; PCP Advanced Practice Midwife
DX: O99.513 Diseases of the respiratory system complicating pregnancy, third trimester (principal); J22 Unspecified acute lower respiratory infection; B97.4 Respiratory syncytial virus as the cause of diseases classified elsewhere; Z20.822 Contact with and (suspected) exposure to COVID-19; Z3A.36 36 weeks gestation of pregnancy
CPT/HCPCS: 87637; 93005; 94640; 99283

== ENCOUNTER 2023-11-01 16:56 | Inpatient (IN) | payer BC, SELFPAY ==
[2023-11-01] VITALS (84 sets, daily range): BP systolic 104–138; BP diastolic 47–114; PULSE 68–121; TEMP 36.6–36.7; O2SAT 92–99; BMI 32.8
[2023-11-01 17:47] LABS: Basophils Percent Auto 0.2 % (0.2-1.2); Eosinophils Absolute Auto 0.1 K/mm3 (0-0.3); Eosinophils Percent Auto 0.7 % (0-4.4); Hematocrit 37.6 % (37.0-47.0); Hemoglobin 12.5 g/dL (12.0-15.0); Immature Granulocyte Absolute 0.05 K/mm3 (0.00-0.031); Immature Granulocyte Percent A 0.5 % (0-0.5); Lymphocytes Absolute Auto 2.09 K/mm3 (0.9-3.2); Mean Corpuscular HGB Conc 33.2 g/dl (32-36); Mean Corpuscular Hemoglobin 28.5 pg (26-34); Mean Corpuscular Volume 85.6 fl (80-100); Mean Platelet Volume 12.3 fl (7.4-10.4); Monocytes Absolute Auto 0.3 K/mm3 (0.1-0.6); Monocytes Percent Auto 3.3 % (2.6-8.5); Neutrophils Absolute Auto 7.4 K/mm3 (1.3-6.7); Neutrophils Percent Auto 74.3 % (45.5-73.1); Platelet Count Result 201 k/mm3 (150-375); Red Blood Count 4.39 M/mm3 (4.2-5.4); Red Cell Distribution Width 13.4 % (11.5-14.5)
--- NOTE | 2023-11-01 17:54 | LDADM ---
This patient, Felicia Wilder, was admitted to Labor/Delivery/Recovery 107 on 11/01/23 at 16:56. Plans for labor, pain management and were discussed with patient. Patient/family oriented to hospital policies and general routines including ID bracelet, bed and alarms, visiting hours, pain management, procedures, bathroom and other care routines, personal items, smoking policy, room service/diet and guest tray routines, security routines, and visiting hours. Patient/Family are encouraged to report perceived risks to care and to ask questions if they do not understand what they are told or what they should do. See OBIX for further documentation.
[2023-11-01] MEDS: AMPICILLIN 2 GM/NS 100 ML 2 GM/100 ML BAG IVPB (18:00)
[2023-11-01] MEDS: LACTATED RINGERS 1,000 ML 125 ML IV CONT ×2 (18:00→21:51)
[2023-11-01] MEDS: OXYTOCIN 30 UNITS/NS 500 ML 30 UNITS/500 ML BAG IV CONT (18:00)
--- NOTE | 2023-11-01 19:12 | WPDOBADMIT ---
Obstetrics - Admit Note Admission Note: record reviewed. No pertinent additions to the history and/or any subsequent changes in the physical findings that are not consistent with the expected course of the were found. Additions to the history and/or subsequent changes in the physical findings follow. IOL for cholestasis at 37 weeks gestation, , SVE /-2, AROM small amount of clear, odorless fluid, anticipate vaginal delivery
--- NOTE | 2023-11-01 20:08 | WPDANESEPPF ---
Anes - Initial Pre Proc Eval Procedure: Labor epidural Date/Time: 11/01/23 20:08 Surgeon: Chong Naylor MD Pre Op Diagnosis: Labor pain Pre Op Diagnosis: MIL Patient Data Age: 28 Gender: F Height: 1.6 m Weight: 84 kg Last Vital Signs Pulse 84 11/01/23 20:00 BP 118/78 11/01/23 20:00 O2 Del Method Room Air 11/01/23 17:49 Allergies Allergy/AdvReac Type Severity Reaction Status Date / Time No Known Allergies Allergy Verified 12/27/21 15:44 Home Medications Medication Instructions Recorded Confirmed Type ferrous sulfate 325 mg (65 mg 325 mg PO DAILY 11/21/21 11/01/23 History iron) tablet (Iron (ferrous sulfate)) vit no.95-ferrous 1 tablet PO DAILY 11/21/21 11/01/23 History fumarate 28 mg-folic acid 800 mcg tablet () escitalopram oxalate 10 mg tablet 10 mg PO DAILY 11/01/23 11/01/23 History Laboratory Tests 11/01/23 17:12 WBC 10.0 K/mm3 (4.5-10.0) RBC 4.39 M/mm3 (4.2-5.4) Hgb 12.5 g/dL (12.0-15.0) Hct 37.6 % (37.0-47.0) MCV 85.6 fl (80-100) MCH 28.5 pg (26-34) MCHC 33.2 g/dl (32-36) RDW 13.4 % (11.5-14.5) Plt Count 201 k/mm3 (150-375) MPV 12.3 H fl (7.4-10.4) Immature Gran % (Auto) 0.5 % (0-0.5) Neut % (Auto) 74.3 H % (45.5-73.1) Lymph % (Auto) 21.0 % (18.3-44.2) [place] % (Auto) 3.3 % (2.6-8.5) Eos % (Auto) 0.7 % (0-4.4) Baso % (Auto) 0.2 % (0.2-1.2) Lymph # (Auto) 2.09 K/mm3 (0.9-3.2) [place] # (Auto) 0.3 K/mm3 (0.1-0.6) Eos # (Auto) 0.1 K/mm3 (0-0.3) Baso # (Auto) 0.0 K/mm3 (0.0-0.1) Abs Immat Gran (auto) 0.05 H K/mm3 (0.00-0.031) Absolute Neuts (auto) 7.4 H K/mm3 (1.3-6.7) Absolute Nucleated RBC 0.0 K/mm3 (0.0-0.012) Nucleated RBC % 0.0 % (0.0-0.2) RPR Pending Blood Type A Negative Antibody Screen Negative Patient hx anesthesia problems: none Family hx anesthesia problems: none Results Review: All pre-operative results and documents have been reviewed as part of the pre-operative evaluation. FOR[facility]LY [facility] Past Medical History Medical History Spontaneous Surgical History Surgical History No history of previous surgery Family History Family History Father Diabetes mellitus Social History Social History Smoking status: Never smoker Alcohol intake: former Substance use: never Lack of Transportation: No Lack of Food: Never True Current Housing: I Have Housing Concerned About Future Housing: No Difficulty Paying Gas/Electric Bills: No Difficulty Paying for Meds: No Currently Unemployed: No Education: High School Diploma/GED Difficulty w/ Childcare or Family Care: No Gender identity (if verbalized by the patient): Female Spiritual care concerns: No Anes - Eval Final PreProcedure Day of Procedure 11/01/23 20:08 Patient weight: normal Heart: regular rate and rhythm Lungs: clear to auscultation Neurological: alert and oriented ASA classification: II Anesthetic plan: proceed Anesthesia type and monitoring: regional epidural Results Review: All pre-operative results and documents have been reviewed as part of the pre-operative evaluation. Informed Consent: The patient's anesthetic plan and its attendant risks and benefits were discussed with the patient/family/POA. Questions were solicited and answers provided to the satisfaction of the patient/family/POA.
--- NOTE | 2023-11-01 20:30 | WPDANESEPN ---
Anes - Epidural Procedure Note Date/Time: 11/01/23 20:30 Consent: I have discussed with the patient/family/POA, the placement of an epidural catheter and the use of epidural narcotic/local anesthetic for labor analgesia and/or postoperative pain management, including associated potential risks, benefits, complications and side effects. I have discussed alternative methods of labor analgesia and/or postoperative pain management. The patient/family/POA, understand(s) and wish(es) to proceed with epidural narcotic/local anesthetic for labor analgesia and/or postoperative pain management. Time-Out: A pre-procedural Time-Out was completed immediately before starting the procedure and confirmed: Patient Identification, Site, Procedure, Patient Position and the Availability of Requisite Equipment. Clinical Indications: Labor pain Epidural Insertion Note Patient position: sitting Skin prep: chlorhexidine and sterile drape Needle: 18g Tuohy-Schliff Catheter: 20g Unstyleted Technique: Loss of resistance. Level of insertion: L3/4 Catheter skin hazel (cm): 11 Length in epidural space (cm): 6 Skin anesthesia: lidocaine 1% Test dose: 1.5% Lidocaine with 1:[id number] Epi, negative for subarachnoid Inj and negative for intravascular Inj Time of test dose: 20:19 Observations: tolerated well Complications: none
[2023-11-01] MEDS: AMPICILLIN 1 GM/NS 50 ML 1 GM/50 ML BAG IVPB (21:54)
[2023-11-02] VITALS (46 sets, daily range): BP systolic 99–149; BP diastolic 36–100; PULSE 66–118; RESP 14–16; TEMP 36.4–36.9; O2SAT 94–100
--- NOTE | 2023-11-02 00:48 | PM.OBPRVD ---
OB - Vaginal Delivery Note Procedure Delivery date: 11/02/23 Events: Other (cholestasis) Induction method: AROM and Per Pitocin Protocol Delivery monitor: External FHT and External Uterine Route of delivery: Laceration Description: None Specimen: Yes Quantitative Blood Loss (ml): 100 Anesthesia type: Epidural Disposition: Floor Baby Date of : 11/02/23 Time of : 00:36 Weeks of gestation at delivery: 37 gender: Female presentation: vertex position: Left Occiput Anterior Placenta delivery description: Manual Removal Cord Vessel Description: 3 Vessels, Nuchal Cord (x2) and Reduced Narrative: baby to warmer for evaluation
[2023-11-02] MEDS: OXYTOCIN 30 UNITS/NS 500 ML 30 UNITS/500 ML BAG 999 UNITS IV CONT (01:03)
[2023-11-02] MEDS: IBUPROFEN 600 MG TABLET PO (02:56)
--- NOTE | 2023-11-02 05:05 | OBPPTRN ---
11/02/2023 at 0354 Patient transferred in wheelchair to post room #292. Support person present. Oriented to unit, room, information board, rooming in, admission packet. Patient verbalizes understanding. Plans are that baby is being transferred soon to [facility]. I offered to take parents back downstairs to see baby until she is tranferred, but mother to stay in her room.
[2023-11-02] MEDS: ACETAMINOPHEN 325 MG TABLET 650 MG PO (05:13)
[2023-11-02 07:18] LABS: Hematocrit 34.4 % (37.0-47.0); Hemoglobin 11.4 g/dL (12.0-15.0)
[2023-11-02] MEDS: MULTIVIT/MIN/PREN/FOL AC/IRON TABLET 1 TAB PO (07:30)
[2023-11-02] MEDS: RHO(D) IMMUNE GLOBULIN 300 MCG/2 ML SYRINGE IM ×2 (10:06→10:13)
[2023-11-02 13:16] LABS: Rapid Plasma Reagin Non-Reactive (NonReactive)
[2023-11-03 10:59] VITALS: BP 139/89; PULSE 78; RESP 18; TEMP 36.7; O2SAT 100
--- NOTE | 2023-11-03 15:48 | PM.OBDSVD ---
DS: Admitting Diagnosis Discharge Date 11/02/23 Admitting Diagnosis IOL, cholestasis OB - DS: Summary OB Procedures : None OB Procedures Intrapartum: Spontaneous Vag Delivery OB Procedures: : None Peripartum Data Laceration Description: None Time Spent with Patient Time attestation: Total time spent providing and/or coordinating discharge services: DS: Data Data Completed and Pending Pending studies at discharge: Pending at discharge 11/02/23 07:46 Surgical [PTH] Routine Discharge Plan Discharge Consulting providers: Damari Kirkpatrick; Kane Shay Discharging Clinician: Damari Kirkpatrick Patient Disposition: Home, Self-Care Activity: may shower, as tolerated and pelvic rest Diet: regular Discharge Instructions: Education: Mom and Baby Guide Given to: Mother Follow-Up: Call your delivering provider's office for an appointment to be seen in: 4 Weeks Mom should come to the [facility] for the follow-up appointment. Appointment Date/Time: November 03, 2023 at 11:00 am What to expect at your follow-up visit: Blood Pressure Check Physical Assessment Call [phone] if you are unable to keep your appointment time. BREAST CARE: * Wear a snug supportive bra. * For engorgement discomfort: Bottle Feeding: * May apply ice packs * Do not pump breasts, this will cause your body to increase milk production * You may take over the counter Tylenol or Ibuprofen to help with discomfort from engorgement EPISIOTOMY/PERINEAL CARE: * Until bleeding stops, use your alex bottle after urinating * Change your pad frequently throughout the day * You may take sitz baths several times a day (fill your bathtub with warm water and soak for 20 minutes.) Do NOT bathe in the water * No tub baths until seen by your physician - You may shower ACTIVITY: * Rest as much as possible. * Do not exercise or lift anything heavier than your baby (such as laundry or other children.) * Avoid stairs or driving as much as possible. * Do not put anything into the vagina. No douching, tampons, or sexual activity until seen by physician. NOTIFY PHYSICIAN IF YOU HAVE ANY QUESTIONS OR IF ANY OF THE FOLLOWING SYMPTOMS OCCUR: * If your vaginal area becomes red, swollen, or more painful than what you have experienced in the hospital. * If your vaginal bleeding becomes foul smelling. * If your vaginal bleeding becomes more heavy than a period or if your bleeding changes from the brownish-red/period color it is now to bright red. However, you may pass an occasional walnut-sized clot once or twice for the first week . * If you experience a sharp, shooting pain in your calves. * If you discover a hard, reddened area on your breast or if you experience flu-like symptoms. DIET: * Eat regular, well-balanced meals. * Drink plenty of fluids daily. If , drink to thirst. Stand Alone Forms: General Discharge Information Follow-up/Referrals: Damari Kirkpatrick CNM [Primary Care Provider] - 4 Weeks Discharge Medications: Continued escitalopram oxalate 10 mg Tablet 10 mg PO DAILY Discontinued ferrous sulfate [Iron (ferrous sulfate)] 325 mg (65 mg iron) Tablet 325 mg PO DAILY PNV cmb#95-ferrous fumarate-FA [] 28 mg iron- 800 mcg Tablet 1 tablet PO DAILY Date of admission: 11/01/23 16:56 Primary Care Provider: Damari Kirkpatrick Admitting Provider: Chong Naylor Attending physician on admission: Chong Naylor Condition: Stable
== END 2023-11-02 10:45 | disposition home or self-care (01) | DRG 805 ==
LOC: ANHLDR 16:59 → ANHOB2 11-02 04:46
PROVIDERS: Admitting Provider Obstetrics & Gynecology; PCP Advanced Practice Midwife; Visit Provider Obstetrics & Gynecology
DX: O26.643 Intrahepatic cholestasis of pregnancy, third trimester (principal); O60.14X0 Preterm labor third trimester with preterm delivery third trimester, not applicable or unspecified; Z37.0 Single live birth; Z3A.37 37 weeks gestation of pregnancy; O69.81X0 Labor and delivery complicated by cord around neck, without compression, not applicable or unspecified
CPT/HCPCS: 36415; 85014; 85018; 85025; 85460; 85461; 86592; 86850; 86900; 86901; 88307; 90384; A9270; J0290; J2590; J2790; J2795; J7120

== ENCOUNTER 2025-10-10 01:25 | Day surgery (SDC) | payer OTHER, SELFPAY ==
[2025-09-29 13:36] VITALS: BMI 27.5
--- NOTE | 2025-09-29 13:42 | PC.NURSE ---
[facility] has started construction of its new state of the art ER which will open Spring 2026. With this, we anticipate parking may be a challenge for some our surgical patients and families. Parking spaces are limited but are available for all Surgical, obstetrics, and ER patients sharing this lot. If you arrive and find you are having a hard time finding a parking space, please note that we understand the challenges, please drive around the hospital and park near Hospital Entrance 1. When you enter this entrance, you can ask a volunteer to direct or take you back to the surgical waiting area to check in. We appreciate everyone?s understanding of these expected challenges while we build for your future. Report to the Outpatient Waiting Room, entrance under the green pavilion located off [address], at time _0830_ on date _[id number]_. Planned Procedure Time: _1030_.? Time changes happen often and if your time is changed the preop area will call you the afternoon before. - You and your visitor will be asked to self-screen and do not enter if you have any COVID symptoms. Please call surgeon if you need to reschedule. - A mask is optional within the hospital at this time. Patients may have clear liquids (water, carbonated beverages, clear teas, apple juice) until 3 hours prior to surgery with a maximum of 20 ounces. - No food from midnight until time of surgery and no smoking, or chewing tobacco (or any form of nicotine). No chewing gum, candy or mints. Take only the following medications with a SIP of water on the morning of surgery: ___Escitalopram____ DO NOT STOP ANY OF YOUR OTHER PRESCRIPTION MEDICATIONS PRIOR TO SURGERY EXCEPT THE FOLLOWING Hold all vitamins and supplements for 3 days per anesthesiologist. Medications to discontinue per physician Date to take last dose Please no make-up, nail sammarinese, hairspray, perfume, deodorant, or body powder the day of surgery.? No jewelry (including any body piercings) or valuables the day of surgery, leave them at home.? Please take a shower or bath the night before, or the morning of, surgery with an antibacterial soap.? Wear comfortable, loose fitting clothing.? - Jewelry must be removed prior to entering the operating room.? Rings and piercings that are not removed may be cut off. - The hospital will not accept responsibility for valuables.? - Please leave all valuables, including medications, at home the day of surgery. If you are going home after surgery, a licensed mail truck driver must drive you home.? - NO public transportation without another adult if you receive anesthesia. - We recommend that an adult stay with you for 24 hours following discharge. - We also recommend that you do not drive, make important decision, drink alcoholic beverages, or take any drugs that were not prescribed by your health care provider for at least 24 hours after your discharge time. Follow any additional instructions given to you from your surgeon. Telephone instructions given to _Tonjay__and asked if any additional questions and then verbalized understanding. Patient advised to call surgeon office or pre surgery nurse liaison [phone] if any additional questions.
[2025-10-10] VITALS (7 sets, daily range): BP systolic 115–128; BP diastolic 73–79; PULSE 66–93; RESP 14–20; TEMP 36.2–36.7; O2SAT 100
--- OUTSIDE RECORDS SUMMARY | 2025-10-10 01:27 | XMS_ITS | Continuity of Care Document ---
Author Organization [facility] [place] Address [address] [place] [address] Assessment No assessment recorded. Plan of Treatment Reminders Order Date Submit Date Provider Last Modified By Organization Details Last Modified Time Details Appointments SURG Salpingec dhara 2024 10:30A Gilmer NAYLOR MD Not available Not available Not available SURG POST OP 2024 08:30A Gilmer NAYLOR MD Not available Not available Not available Lab None recorded. Referral None recorded. Procedures None recorded. Surgeries salpingec dhara, laparosco pic (SURG) 2024 025 [id number] [place] [facility], [facility] [address], [address], 09/11/2025 12:41:44 Imaging None recorded. Medication Orders None recorded. Patient TargetsNo targets recorded. Patient InstructionsNo instructions recorded. Reason for Referral None Reported. Results Created Date Observation Date Name Description Value Unit Range Abnormal Flag Note LastModifiedBy Organization Detail LastModifiedTime 08/14/2008/14/2025 WOMEN 'S HEALT H SWAB, HEATHER bacterial vaginosis (bv), tma Negati ve negati ve This test detec ts ribos omal RNA from bacte joao assoc iated with bacte rial vagin osis (BV), inclu ding Lacto bacil piyush (L. gasse ri, L. crisp atus and L. jense tommie), Gardn erell a vagin kristofer, and Atopo bium vagin ae by Trans cript ion-M ediat ed Ampli ficat ion (TMA) . A singl e quali tativ e resul t is repor mariya based on instr ument softw are to deter mine BV posit luiz or negat luiz statu s. Not Available [facility] (Lab) [address], [place], [address], 08/15/2025 22:01:23 08/14/20 25 08/14/2025 WOMEN 'S HEALT H SWAB, HEATHER concetta species, tma Negati ve negati ve Not Available [facility] (Lab) [address], [place], [address], 08/15/2025 22:01:23 08/14/20 25 08/14/2025 WOMEN 'S HEALT H SWAB, HEATHER concetta glabrata, tma Negati ve negati ve Not Available [facility] (Lab) [address] [place], [address], 08/15/2025 22:01:23 08/14/20 25 08/14/2025 WOMEN 'S HEALT H SWAB, HEATHER trichomonas vaginalis, tma Negati ve negati ve This assay tests for and diffe renti cristhian granado en Karen da glabr mekhi, the Karen da speci es group (C. albic ans, C. tropi calis , C. parap jolanta is, C. dubli niens is), and Trich omona s vagin kristofer by Trans cript ion-M ediat ed Ampli ficat ion (TMA) . Not Available [facility] (Lab) [address], [place], [address], 08/15/2025 22:01:23 Result Notes None recorded. 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 3 16:33:41 RhD negative 031383498 Completed 04/16/21, 07/30/21, 10/24 Sola Valderramanenstie hl null, [facility] 2 13:22:17 RhD negative 945797242 Completed Rhogam @ 28wks - 09/17/23 Essie Spence null, [facility] 3 16:33:41 Depressi ve disorder 05958143 Active lexapro Essie Spence null, [facility] 3 16:33:41 Depressi ve disorder 91022895 Completed lexapro Essie Spence null, [facility] 3 16:33:41 Gestatio n less than 9 weeks 576869627 Completed 201805/10/2021 Less than 8 weeks gestatio n of pregnanc y;Record ed Elsewher e: No [facility]: EHR Slider Assembler amaya: N Practi ce ID: 0001 Tyler lable Time: 10:00:00 AM Amanda Foster [facility], [facility] 1 09:49:27 Pregnanc y detectio n examinat ion Completed 201805/10/2021 Encounte r for pregnanc y test, result positive ;Practic e ID: 0001 Amanda Foster [facility], [facility] 09:49:31 Threaten ed miscarri age 97737059 Completed 201905/10/2021 Threaten ed ;Recorde d Elsewher e: No [facility]: EHR Slider Assembler amaya: N Practi ce ID: 0001 Tyler lable Time: 10:15:00 AM Amanda Foster [facility] 09:49:33 Finding of contents of cervix 540851540 Completed 201905/10/2021 Weeks of gestatio n of pregnanc y not specifie d;Record ed Elsewher e: No Locat ion: [facility] S ource: EHR Slider Assembler amaya: N Practi ce ID: 0001 Tyler lable Time: 09:45:00 AM Amanda nickerson, [facility] 1 09:49:23 Finding of viabilit y of pregnanc y 528532334 Completed 201905/10/2021 Pregnanc y w inconclu sive viabilit y, unsp;Pra ctice ID: 0001 Amanda Foster [facility], [facility] 1 09:49:26 Missed miscarri age [id number] Completed 201905/10/2021 Missed ;Recorde d Elsewher e: No Locat ion: [facility] S ource: EHR Slider Assembler amaya: N Practi ce ID: 0001 Tyler lable Time: 01:30:00 PM Amanda Kristin [facility], [facility] 1 09:49:29 Pregnanc y [id number] Completed 202001/17/2022 Essie Spence [facility], [facility] 3 16:33:47 Group B Streptoc occus carrier [id number] 03 Completed 2020 in urine - abx in labor Sola camara [facility], [facility] 2 13:22:17 Pregnanc y 50034201 Completed 202211/02/2023 Essie Spence [facility], [facility] 3 16:33:47 Problem Notes None recorded. Procedures Surgical History Date Name Laterality Status Provider Name and Address Organization Details Recorded Time 3 Date of Last Pap Smear completed Amanda Wadetz [facility] 04/08/2023 11:53:34 2 Nexplanon Removal completed Linda Edgar MD [address], [place], [address], [facility] 09/30/2022 09:24:06 Control Implant Insertion completed Linda Edgar MD [address], [place], [address], [facility] 03/07/2022 11:14:11 Imaging Results None recorded. Procedure Notes None recorded. Medical Equipment None Reported. Allergies No known drug allergies Medications Name Sig Start Date Stop Date Status Note LastModified by Organization Details LastModified Time metronida zole 500 mg tablet TAKE 1 TABLET BY MOUTH TWICE DAILY FOR 7 DAYS 08/02 completed Not Available Not Available Not Available misoprost ol [address] four tablets in the vagina 12/06 completed Prescrib giuliana Bustamante e: No [facility] By: john ybarra DateTime : 11/21/19 04:45:00 PM Not Available Not Available Not Available ondansetr on 4 mg disintegr ating tablet DISSOLVE 1 TABLET ON THE TONGUE EVERY 4 TO 6 HOURS NEEDED 10/14 completed Not Available Not Available Not Available metoclopr amide 10 mg tablet TAKE 1 TABLET BY MOUTH FOUR TIMES DAILY 10/14 completed Not Available Not Available Not Available escitalop renetta 10 mg tablet TAKE 1 TABLET BY MOUTH EVERY DAY 05/02 completed Not Available Not Available Not Available Lexapro 20 mg tablet Take 1 tablet(s ) every day by oral route. 2024 active Not Available Not Available Not Avai lable cyclobenz aprine 5 mg tablet TAKE 1 TABLET BY MOUTH THREE TIMES DAILY NEEDED 02/03 completed Not Available Not Available Not Available Nexplanon 68 mg subdermal implant Inject by subcutan eous route. 04/08 completed Not Available Not Available Not Available Vitals Date Recorded Body height Body mass index (BMI) Body weight Systolic And Diastolic Provider Name and Address Organization Details Last Updated DateTime 09/11/2025 162.56 cm 27.3 kg/m2 85848.19 g 113/72 mm[Hg] Ros Mahajan [facility] 09/11/2025 10:06:44 Social History Question Answer Notes LastModified by Organizat ion Details LastModified Time Tobacco Smoking Status Former Smoker Vanessa Foxney [facility] 12/02/2023 14:30:20 Do You Have An Advance Directive? No [email or web address] Information not available 04/08/2023 If You Are , What Was Your Level Of Alcohol Consumption Prior To ? None [email or web address] Information not available 12/02/2023 Are You Blind Or Do You Have Difficulty Seeing? No [email or web address] Information not available 04/08/2023 What Is Your Level Of Caffeine Consumption? Occasional [email or web address] Information not available 04/08/2023 How Much Tobacco Do You Chew? None [email or web address] Information not available 04/08/2023 In The 14 Days Before Symptom Onset, Have You Had Close Contact With A Laboratory-confir med COVID-19 While That Case Was Ill? No [email or web address] Information not available 04/08/2023 In The 14 Days Before Symptom Onset, Have You Had Close Contact With A Person Who Is Under Investigation For COVID-19 While That Person Was Ill? No Information not available 04/08/2023 Have You Been To An Area Known To Be High Risk For COVID-19? No [email or web address] Information not available 04/08/2023 Are You Deaf Or Do You Have Serious Difficulty Hearing? No [email or web address] Information not available 04/08/2023 What Type Of Diet Are You Following? REGULAR [email or web address] Information not available 04/08/2023 What Is The Highest Grade Or Level Of School You Have Completed Or The Highest Degree You Have Received? [id number] [email or web address] Information not available 04/08/2023 Are There Any Guns Present In Your Home? Yes [email or web address] Information not available 04/08/2023 Have You Ever Been Counseled For Unhealthy Alcohol Use? No [email or web address] Information not available 12/02/2023 Do You Use Protection During Sex? No [email or web address] Information not available 04/08/2023 Do You Use Your Seat Belt Or Car Seat Routinely? Yes [email or web address] Information not available 04/08/2023 Do You Have Smoke And Carbon Monoxide Detectors In Your Home? Yes Information not available 04/08/2023 How Much Tobacco Do You Smoke? No [email or web address] Information not available 04/08/2023 Do You Use Sunscreen Routinely? Yes Information not available 04/08/2023 Has Tobacco Cessation Counseling Been Provided? No [email or web address] Information not available 12/02/2023 Have You Used IV Drugs? No [email or web address] Information not available 04/08/2023 Do You Have Difficulty Walking Or Climbing Stairs? No [email or web address] Information not available 12/02/2023 Sex: Unknown Functional Status Question Answer Note LastModified by Organizat ion Details LastModified Time Do you use any illicit or recreational drugs? No [email or web address] Information not available 04/08/2023 Do you or have you ever used any other forms of tobacco or nicotine? No Information not available 12/02/2023 What is your level of alcohol consumption? None Information not available 04/08/2023 Are you able to walk independently without assistance or assistive devices? YESWOREST [email or web address] Information not available 04/08/2023 Are you able to care for yourself independently? 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 No [email or web address] Information not available 12/02/2023 What is your exercise level? Occasional [email or web address] Information not available 04/08/2023 Mental Status Question Answer Note LastModified by Organization D etails LastModified Time Do you feel stressed (tense, restless, nervous, or anxious, or unable to sleep at night)? [id number] [email or web address] Information not available 04/08/2023 Family History Relationship Description Onset Age of this Age Resolved Age Notes LastModified by Organization Details LastModified Time Father Diabetes mellitus [email or web address] Not available 10/30 11:06:31 Brother Asthma [email or web address] Not availabl e 10/30/2023 11:06:31 Paternal Grandmother Malignant neoplasm of breast unsure age [email or web address] Not available 09/11/2025 09:52:14 Medical History Condition Response Allergies (Food, seasonal, environmental ) N Other N Drug/Latex Allergies/Reactions N Blood Transfusion N Breast Cancer N Dermatologic Disorders N Lung Disease N Defects or Inherited Disease N Breast Problem N Gestational Diabetes N Hematologic disorders N Anesthesia Complications N History of STI N Deep Vein Thrombosis N Polycystic ovary syndrome N Anxiety Disorder Y Autoimmune disease N Arthritis N Polyps N Infertility N Acid Reflux (GERD) N History of abnormal pap N Cancer N Varicosities N Stroke N Neurologic/Epilepsy N Endometriosis N High Cholesterol N Fibromyalgia N Headaches N Kidney Disease N Heart Problems N Thyroid Problems N Kidney or Bladder Problems N GI Problems N Eating Disorder N Anemia N Art (IVF or FET) N Psychiatric Illness N Ovarian Cancer N Diabetes N Pulmonary (TB, Asthma) N Hepatitis/Liver Disease N No Past Medical History N Eczema N Urinary Tract Infection N Abuse/Domestic Violence N Asthma N Trauma/Violence N Depression/ depression Y Heart Disease N Pre-Eclampsia N Hypertension N Osteoporosis N Thrombophilias N Gynecological History Statement/Question Response Date of Last Mammogram Flow Light Date of LMP 09/09/2025 N Was last menstrual period normal Y STIs/STDs N Date of Last Colonoscopy Desired Control Method Sterilizati on Abnormal Pap N On BCP's at Conception? N HPV Vaccine N Colposcopy Duration of Flow (days) 5 Current Control Method Withdrawal Age at First Child 26 Are cycles usually normal Y Frequency of Cycle (Q days) 30 Sexually Active? Y Menses Monthly Y Date of DEXA bone scan Age of first menstrual cycle 15 Date of Last Pap Smear 04/08/2023 Sexual Problems? N LMP Definite N Obstetrics History GPAL:G 3 P 2 0 1 2 Type Value Full Term 2 Spontaneous 1 Living 2 Total 3 Past Encounters Encounter ID Performer Location Encounter Start Date Encounter Closed Date Diagnosis/Indication Diagnosis SNOMED-CT Code Diagnosis ICD10 Code Diagnosis IMO Codes Diagnosis Note [id number] ARIANA CORBIN NP [facility] [address] [address] 08/14/2025 09:09:13 08/14/2025 09:32:57 Vaginal discharge [id number] N89.8 63043 Reviewed the various causes of vaginal discharge and vaginitis symptoms, including both infectious (STD's, BV, yeast, others) and noninfecti ous (physiolog ic d/c, irritants/ allergens, DIV, others) causes. Reviewed good vulvar/vag inal hygiene and ways to reduce symptoms. Will r/o infection with vaginitis panel for yeast/bv/t rich. Will await results prior to treatment since physical exam was overall normal. [id number] Hung Naylor MD [facility] [address] [address] 09/11/2025 09:51:37 09/11/2025 10:52:13 Unwanted fertility [id number] Z30.09 [id number] This patient presents for female sterilizat ion. The patient desires tubal ligation. She is certain that she no longer wants to be fertile. We discussed sterilizat ion in detail. I described the procedure to the patient in detail. I informed her that we remove the tubes entirely in a. We discussed alternativ es. The patient knows they are highly effective reversible options. She understand s that the Salpingect supriya n is permanent. We discussed failure rate. She understand s there is reported failure rate to salpingect supriya.. As described salpingect supriya and removal of the entire tube. I discussed the reduction in ovarian cancer risk. The patient understand s and is ready to proceed with laparoscop ic bilateral tubal ligation. She return for informed consent process. Her surgery will be scheduled. Health Concerns Section Related Observation LastModified by Organization Detai ls LastModified Time None Recorded Concern Status LastModified by Organization Details LastModified Time None Recorded Payers Encounter Date Sequence Insurance Name Policy Number Policy Parekh Covered Member ID Parekh Member ID Guarantor Name 09/11/2025 1 [facility] [id number] Ron Wilder [id number] Ron Wilder Notes Date Note Type Note Provider Name and Address Organization Details Recorded Time 09/11/2025 text/html This patient presents for female sterilization. The patient desires tubal ligation. She is certain that she no longer wants to be fertile. We discussed sterilization in detail. I described the procedure to the patient in detail. I informed her that we remove the tubes entirely in a. We discussed alternatives. The patient knows they are highly effective reversible options. She understands that the Salpingectomy n is permanent. We discussed failure rate. She understands there is reported failure rate to salpingectomy.. As described salpingectomy and removal of the entire tube. I discussed the reduction in ovarian cancer risk. The patient understands and is ready to proceed with laparoscopic bilateral tubal ligation. She return for informed consent process. Her surgery will be scheduled. Hung Naylor MD [address], [place], [address], [facility] 09/11/2025 10:49:57 OBGyn Episode No OBEpisode recorded.
--- OUTSIDE RECORDS SUMMARY | 2025-10-10 01:27 | XMS_ITS | Data Portability ---
Author Organization [facility] Address [address] [place] [address] Assessment Encounter Date Assessment Date Assessment LastModified by Organization Details LastModified Time 05/15/2025 05/15/2025 Annual gynecological exam performed. Patient will come back in a year unless there are new symptoms. [email or web address] Not available 05/15/2025 11:56:25 Plan of Treatment Reminders Order Date Submit Date Provider Last Modified By Organization Details Last Modified Time Details Appointments SURG Salpingec dhara 2024 10:30A Gilmer NAYLOR MD Not available Not available Not available SURG POST OP 2024 08:30A Gilmer NAYLOR MD Not available Not available Not available Lab unlisted lab - [facility] swab, HEATHER 2024 025 [facility] (Lab), [address] , [place], [address], 08/15/2025 22:01:23 CT + NG + TV, RNA, unspecifi ed specimen 2024 025 [facility] (Lab), [address], [place], [address], 05/16/2025 16:22:50 Referral None recorded. Procedures None recorded. Surgeries salpingec dhara, laparosco pic (SURG) 2024 025 [facility], [address], [place], [address], 09/11/2025 12:41:44 Imaging None recorded. Medication Orders Lexapro 20 mg tablet 2024 025 [place] [id number], [address], [place], [place], [id number], 05/15/2025 12:21:52 Lexapro 20 mg tablet 2023 024 [place] [id number], [address], [place], [place], [id number], 06/14/2024 09:58:37 Patient TargetsNo targets recorded. Patient InstructionsNo instructions recorded. Reason for Referral None Reported. Results Created Date Observation Date Name Description Value Unit Range Abnormal Flag Note LastModifiedBy Organization Detail LastModifiedTime 01/24/2001/23/2025 [facility]OM[facility] 'S HEALT H SWAB PLUS, HEATHER bacterial vaginosis (bv), tma Negati ve negati ve Not Available [facility] (Lab) [address] [place], [address], 01/24/2025 14:41:19 01/24/2001/23/2025 [facility] concetta species, tma Negati ve negati ve Not Available [facility] (Lab) [address] [place], [address], 01/24/2025 14:41:19 01/24/2001/23/2025 [facility] concetta glabrata, tma Negati ve negati ve Not Available [facility] (Lab) [address] [place], [address], 01/24/2025 14:41:19 01/24/20 25 01/23/2025 [facility] trichomonas vaginalis, tma Negati ve negati ve Not Available [facility] (Lab) [address] [place], [address], 01/24/2025 14:41:19 01/24/20 25 01/23/2025 WOMEN 'S HEALT H SWAB PLUS, HEATHER chlamydia trachomatis, PCR Negati ve negati ve Not Available [facility] (Lab) [address] , [place], [address], 01/24/2025 14:41:19 01/24/20 25 01/23/2025 WOMEN 'S HEALT H SWAB PLUS, HEATHER neisseria gonorrhoeae, PCR Negati ve negati ve Bacte rial vagin osis detec ts the follo wing bacte joao assoc iated with bacte rial vagin osis (BV): Lacto bacil piyush (L. gasse ri, L. crisp atus and L. jense tommie), Gardn erell a vagin kristofer, and Atopo bium vagin ae. A singl e quali tativ e resul t is repor mariya base on instr ument softw are to deter mine BV posit luiz or negat luiz statu s. The Karen da speci es group tests for C. albic ans, C. tropi calis , C. parap jolanta is, C. dubli niens is. Testi ng is perfo rmed using the Trans cript ion Media mariya Ampli ficat ion metho d. Tests for Karen da glabr mekhi, Trich omona s vagin kristofer, Chlam ydia trach omati s, and Neiss eria gonor rhoea e are also inclu ded in this panel . Not Available [facility] (Lab) [address], [place], [address], 01/24/2025 14:41:19 05/15/20 25 05/15/2025 CT/GC AND TRICH OMONA S VAGIN KRISTOFER (RRNA ), URINE chlamydia trachomatis, PCR Negati ve negati ve Not Available [facility] (Lab) [address], [place], [address], 05/16/2025 16:22:50 05/15/20 25 05/15/2025 CT/GC AND TRICH OMONA S VAGIN KRISTOFER (RRNA ), URINE neisseria gonorrhoeae, PCR Negati ve negati ve Not Available [facility] (Lab) [address] [facility], [place], [address], 05/16/2025 16:22:50 05/15/20 25 05/15/2025 CT/GC AND TRICH OMONA S VAGIN KRISTOFER (RRNA ), URINE trichomonas vaginalis ribosomal RNA (rrna) Negati ve negati ve Not Available [facility] (Lab) [address] [facility], [place], [address], 05/16/2025 16:22:50 08/14/20 25 08/14/2025 WOMEN 'S HEALT H SWAB, HEATHER bacterial [...] or negat luiz statu s. Not Available [facility] (Lab) [address] [facility], [place], [address], 08/15/2025 22:01:23 08/14/2008/14/2025 WOMEN 'S HEALT H SWAB, HEATHER concetta species, tma Negati ve negati ve Not Available [facility] (Lab) [address] [facility], [place], [address], 08/15/2025 22:01:23 08/14/20 25 08/14/2025 WOMEN 'S HEALT H SWAB, HEATHER concetta glabrata, tma Negati ve negati ve Not Available [facility] (Lab) [address] [facility], [place], [address], 08/15/2025 22:01:23 08/14/20 25 08/14/2025 WOMEN 'S HEALT H SWAB, HEATHER trichomonas vaginalis, tma Negati ve negati ve This assay tests for and diffe allison granado en Karen da glabr mekhi, the Karen da speci es group (C. albic ans, C. tropi calis , C. parap jolanta is, C. dubli niens is), and Trich omona s vagin kristofer by Trans cript ion-M ediat ed Ampli ficat ion (TMA) . Not Available [facility] (Lab) [address], [place], [address], 08/15/2025 22:01:23 Result Notes None recorded. 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 3 16:33:41 RhD negative 802836325 Completed 04/16/21, 07/30/21, 10/24 Sola Kitchen null, [facility] 2 13:22:17 RhD negative 084201436 Completed Rhogam @ wks - 09/17/23 Keeleysierra Nguyenizzle [facility] 3 16:33:41 Depressi ve disorder 15791790 Active lexapro Essie Nguyenizzle [facility], [facility] 3 16:33:41 Depressi ve disorder 44951554 [facility] 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 09:49:27 Pregnanc y detectio n examinat ion Completed 201805/10/2021 Encounte r for pregnanc y test, result positive ;Practic e ID: [id number] Amanda nickerson, [facility] 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 09:49:33 Finding of contents of cervix 743705767 Completed 201905/10/2021 Weeks of gestatio n of pregnanc y not specifie d;Record ed Elsewher e: No Locat ion: Mitra [facility] S ource: EHR Steel Rule Die Maker amaya: N Yovanyti ce ID: [id number] Tyler lable Time: 09:45:00 AM Amanda nickerson, [facility] 09:49:23 Finding of viabilit y of pregnanc y 594684093 Completed 201905/10/2021 Pregnanc y w inconclu sive viabilit y, unsp;Pra ctice ID: [id number] Amanda nickerson, [facility] 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 06/25/202 1 09:49:29 Pregnanc y 58866243 Completed 202001/17/2022 Essie Spence [facility], [facility] 3 16:33:47 Group B Streptoc occus carrier [id number] 03 Completed 2020 in urine - abx in labor Sola Kitchen jax [facility], [facility] 2 13:22:17 Pregnanc y 11486159 Completed 202211/02/2023 Essie Spence [facility], [facility] 3 16:33:47 Problem Notes None recorded. Procedures Surgical History Date Name Laterality Status Provider Name and Address Organization Details Recorded Time 3 Date of Last Pap Smear completed Amanda Foster [facility] 04/08/2023 11:53:34 2 Nexplanon Removal completed Linda Edgar MD [address], [place], [address], [facility] 09/30/2022 09:24:06 2 Control Implant Insertion completed Linda Edgar MD [address], [place], [address], [facility] 03/07/2022 11:14:11 Imaging Results None recorded. [...] tablets in the vagina 12/06 completed Prescrib ed Dianna e: No Locat ion: Mitra schultz [facility] M odify By: elyssay Radha r DateTime : 11/21/19 04:45:00 PM Not Available [...] and Address Organization Details Last Updated DateTime 01/23/2025 162.56 cm 27.9 kg/m2 96464.12 g 118/78 mm[Hg] [facility] 01/23/2025 10:36:02 Date Recorded Body height Body mass index (BMI) Body weight Systolic And Diastolic Provider Name and Address Organization Details Last Updated DateTime 05/15/2025 162.56 cm 28.3 kg/m2 40347.74 g 111/70 mm[Hg] [facility] 05/15/2025 11:56:51 Date Recorded Body height Body mass index (BMI) Body weight Systolic And Diastolic Provider Name and Address Organization Details Last Updated DateTime 06/14/2024 162.56 cm 29.4 kg/m2 02227.3 g 119/80 mm[Hg] Raven Perez [facility] 06/14/2024 09:42:36 Date Recorded Body height Body mass index (BMI) Body weight Systolic And Diastolic Provider Name and Address Organization Details Last Updated DateTime 08/14/2025 162.56 cm 27.5 kg/m2 37700.78 g 116/75 mm[Hg] Jennifer Auguste [facility] 08/14/2025 09:19:40 Date Recorded Body height Body mass index (BMI) Body weight Systolic And Diastolic Provider Name and Address Organization Details Last Updated DateTime 09/11/2025 162.56 cm 27.3 kg/m2 47485.19 g 113/72 mm[Hg] Ros Keyshawn [facility] 09/11/2025 10:06:44 Social History Question Answer Notes LastModified by Organizat ion Details LastModified Time Tobacco Smoking Status Former Smoker Vanessa Parker liya, [facility] 12/02/2023 14:30:20 Do You Have An Advance Directive? No [email or web address] Information not available 04/08/2023 If You Are , What Was Your Level Of Alcohol Consumption Prior To ? None Information not available 12/02/2023 Are You Blind Or Do You Have Difficulty Seeing? No [email or web address] Information not available 04/08/2023 What Is Your Level Of Caffeine Consumption? Occasional [email or web address] Information not available 04/08/2023 How Much Tobacco Do You Chew? None [email or web address] Information not available 04/08/2023 In The 14 Days Before Symptom Onset, Have You Had Close Contact With A Laboratory-confir med COVID-19 While That Case Was Ill? No [email or web address] Information not available 04/08/2023 In The 14 Days Before Symptom Onset, Have You Had Close Contact With A Person Who Is Under Investigation For COVID-19 While That Person Was Ill? No [email or web address] Information not available 04/08/2023 Have You Been To An Area Known To Be High Risk For COVID-19? No [email or web address] Information not available 04/08/2023 Are You Deaf Or Do You Have Serious Difficulty Hearing? No [email or web address] Information not available 04/08/2023 What Type Of Diet Are You Following? REGULAR [email or web address] Information not available 04/08/2023 What Is The Highest Grade Or Level Of School You Have Completed Or The Highest Degree You Have Received? MD11452-1 [email or web address] Information not available 04/08/2023 Are There Any Guns Present In Your Home? Yes [email or web address] Information not available 04/08/2023 Have You Ever Been Counseled For Unhealthy Alcohol Use? No Information not available 12/02/2023 Do You Use Protection During Sex? No [email or web address] Information not available 04/08/2023 Do You Use Your Seat Belt Or Car Seat Routinely? Yes [email or web address] Information not available 04/08/2023 Do You Have Smoke And Carbon Monoxide Detectors In Your Home? Yes [email or web address] Information not available 04/08/2023 How Much Tobacco Do You Smoke? No [email or web address] Information not available 04/08/2023 Do You Use Sunscreen Routinely? Yes [email or web address] Information not available 04/08/2023 Has Tobacco Cessation Counseling Been Provided? No [email or web address] Information not available 12/02/2023 Have You Used IV Drugs? No Information not available 04/08/2023 Do You Have Difficulty Walking Or Climbing Stairs? No [email or web address] Information not available 12/02/2023 Sex: Unknown Functional Status Question Answer Note LastModified by Organizat ion Details LastModified Time Do you use any illicit or recreational drugs? No [email or web address] Information not available 04/08/2023 Do you or have you ever used any other forms of tobacco or nicotine? No [email or web address] Information not available 12/02/2023 What is your level of alcohol consumption? None [email or web address] Information not available 04/08/2023 Are you able to walk independently without assistance or assistive devices? YESWOREST [email or web address] Information not available 04/08/2023 Are you able to care for yourself independently? 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 No Information not available 12/02/2023 What is your exercise level? Occasional [email or web address] Information not available 04/08/2023 Mental Status Question Answer Note LastModified by Organization D etails LastModified Time Do you feel stressed (tense, restless, nervous, or anxious, or unable to sleep at night)? [id number] [email or web address] Information not available 04/08/2023 Family History Relationship Description Onset Age of this Age Resolved Age Notes LastModified by Organization Details LastModified Time Father Diabetes mellitus [email or web address] Not available 10/30 11:06:31 Brother Asthma [email or web address] Not availabl e 10/30/2023 11:06:31 Paternal Grandmother Malignant neoplasm of breast unsure age [email or web address] Not available 09/11/2025 09:52:14 Medical History Condition [...] ICD10 Code Diagnosis IMO Codes Diagnosis Note [id number] Damari Kirkpatrick, SING[facility] [address],[place] [address] 05/10/2021 09:15:40 05/10/2021 10:08:22 Gynecologic examination 22980851 Z01.419 Amenorrhea 21743554 N91. 2 [id number] Hung Naylor MD [facility] [address],[place] [address] 05/10/2021 09:15:58 05/10/2021 10:23:52 [id number] Linda Edgar MD [facility] [address],[place] [address] 06/07/2021 09:41:00 06/10/2021 14:10:52 Routine care 971086782 Z34.81 [id number] Linda Edgar MD [facility] [address],[place] [address] 06/07/2021 09:42:17 06/07/2021 11:11:32 screening 590659721 Z36.82 [id number] Linda Edgar MD [facility] [address],[place] [address] 07/05/2021 10:16:24 07/05/2021 14:18:11 Routine care 434742748 Z34.81 [id number] MD Brittany Rich [address],[place] [address] 07/30/2021 17:24:05 07/30/2021 18:18:27 Spotting per vagina in 018829160 O26.852 Z3A.19 [id number] Damari Kirkpatrick CNM [facility] [address],[place] [address] 08/02/2021 09:58:19 08/02/2021 12:18:20 Routine care 372366314 Z34.92 [id number] Hung Naylor MD [facility] [address],[place] [address] 08/02/2021 09:57:44 08/02/2021 12:14:25 screening 841175638 Z36.3 [id number] Damari Kirkpatrick CNM [facility] [address],[place] [address] 08/30/2021 15:54:28 08/30/2021 16:23:23 Routine care 675743052 Z34.92 [id number] Hung Naylor MD [facility] [address],[place] [address] 08/29/2021 16:23:38 08/29/2021 17:16:04 screening 072864446 Z36.2 [id number] Theodora Major [facility] [address],[place] [address] 09/24/2021 14:40:31 09/24/2021 15:38:11 Routine care 993906094 Z34.92 [id number] Hung Naylor MD [facility] [address],[place] [address] 09/24/2021 14:38:56 09/24/2021 15:30:17 condition affecting obstetrical care of mother 115078122 O35.0XX0 Z3A.27 [id number] Linda Edgar MD [facility] [address],[place] [address] 10/08/2021 15:53:19 10/09/2021 19:41:41 RhD negative 449844450 Z01.83 Routine an tenatal care 692901432 Z34.81 [id number] Linda Edgar MD [facility] [address],[place] [address] 10/23/2021 16:18:28 10/23/2021 17:06:34 [id number] Linda Edgar MD [facility] [address],[place] [address] 11/05/2021 18:01:44 11/06/2021 11:46:25 Routine care 313970801 Z34.[address] reptococcus carrier 5525023567 103 Z22.330 RhD negative 982353450 Z 01.83 [id number] Theodora Major [facility] [address],[place] [address] 11/27/2021 11:18:20 11/27/2021 11:59:31 Routine care 141700975 Z34.92 [id number] MD Brittany Leija [address],[place] [address] 12/02/2021 17:13:45 12/02/2021 18:14:05 Routine care 681726199 Z34.[address] reptococcus carrier 9581986160 103 Z22.330 [id number] MD Brittany Leija [address],[place] [address] 12/10/2021 11:00:55 12/10/2021 12:00:05 Routine care 825471630 Z34.81 [id number] MD Brittany Leija [address],[place] [address] 12/17/2021 11:10:17 12/17/2021 14:39:23 Routine care 334933881 Z34.81 [id number] MD Brittany Leija [address],[place] [address] 02/03/2022 15:23:32 02/03/2022 16:42:20 [id number] MD Brittany Leija [address],[place] [address] 03/07/2022 10:36:51 03/07/2022 11:27:49 test negative 469384929 Z32.02 Insertion of subcutaneous contraceptive done 1472782648 73410 Z30.46 [id number] MD Brittany Leija [address],[place] [address] 09/29/2022 15:31:09 09/30/2022 15:13:55 Removal of subcutaneous contraceptive 219386326 Z30.46 [id number] MD Brittany Leija [address],[place] [address] 06/02/2022 17:14:24 06/02/2022 17:49:04 Gynecologic examination 70418706 Z01.419 Surveillan ce of subcutaneous contraceptive implant 884462271 Z30.46 [id number] Linda Edgar MD [facility] [address],[place] [address] 07/07/2022 10:00:09 07/07/2022 11:04:33 Anxiety 10658455 F41.9 [id number] Linda Edgar MD [facility] [address],[place] [address] 08/18/2022 12:18:37 08/18/2022 14:42:10 Anxiety 82855869 F41.9 [id number] Linda Edgar MD [facility] [address],[place] [address] 04/08/2023 10:49:42 04/08/2023 11:12:51 [id number] Damari Kirkpatrick [facility] [address],[place] [address] 04/08/2023 10:50:58 04/08/2023 12:06:02 Amenorrhea 64971201 N91.2 reviewed office , precaution s folder, reglan for nausea, f/u new ob and first look declines nips and carrier Nausea and vomiting 1693 1999 R11.2 Gynecologi c examination 52711723 Z01.419 Z11.3 Z11.8 [id number] Linda Edgar MD [facility] [address],[place] [address] 05/18/2023 10:36:48 05/18/2023 13:25:09 screening 597329474 Z36.82 [id number] MD Brittany Leija [address],[place] [address] 05/18/2023 10:37:22 05/27/2023 09:33:16 Routine care 368246207 Z34.81 RhD negative 023027068 Z 01.83 [id number] MD Brittany Leija [address],[place] [address] 06/17/2023 11:28:41 06/17/2023 14:52:52 Routine care 526002936 Z34.81 [id number] MD Leticia [place] [address],[place] [address] 06/29/2023 12:24:28 06/29/2023 13:14:51 Spotting per vagina in 490521645 O26.852 Z3A.19 [id number] Linda Edgar MD [facility] [address],[place] [address] 07/15/2023 10:28:16 07/15/2023 11:54:28 screening for malformation 225119571 Z36.3 [id number] Linda Edgar MD [facility] [address],[place] [address] 07/15/2023 10:29:09 07/15/2023 12:36:41 Routine care 884653321 Z34.81 [id number] Linda Edgar MD [facility] [address],[place] [address] 08/12/2023 11:25:17 08/12/2023 14:22:35 Routine care 220914879 Z34.81 [id number] Damari Kirkpatrick [facility] [address],[place] [address] 09/02/2023 11:39:30 09/02/2023 12:30:00 Routine care 625190549 Z34.92 [id number] [facility] [address],[place] [address] 09/16/2023 15:09:46 09/16/2023 15:40:02 Routine care 685737719 Z34.92 [id number] Hung Naylor MD [facility] [address],[place] [address] 09/30/2023 14:48:48 09/30/2023 15:25:32 Uterine size for dates discrepancy 708476037 O26.843 Z3A.32 [id number] [facility] [address],[place] [address] 09/30/2023 14:49:19 09/30/2023 15:55:24 Routine care 586664300 Z34.92 [id number] Damari Kirkpatrick [facility] [address],[place] [address] 10/14/2023 15:58:03 10/14/2023 16:20:28 Routine care 781646305 Z34.92 [id number] Damari Kirkpatrick [facility] [address],[place] [address] 10/30/2023 10:57:05 10/30/2023 11:25:06 Routine care 581592296 Z34.92 Itching of skin 21409508 0 L29.9 [id number] Damari Kirkpatrick [place] [address],[place] [address] 12/02/2023 14:30:07 12/02/2023 15:28:33 care 037468475 Z39.2 normal visit, f/u wwe 05/09 [id number] JAZMIN Young [facility] [address],[place] [address] 05/02/2024 09:51:51 05/02/2024 11:08:59 Gynecologic examination 17755248 Z01.419 WWEB - declinedpa p due 2025declin ed STI screenenco uraged annual exam with PCP It is strongly advised to have an annual flu shot and up can obtain at most pharmacies .Discussed with patient & provided with informatio n regarding HPV vaccine if applicable . Encourage safe sexual practices, to use condoms and limit partners if not already in a monogamous relationsh ip.Do monthly self breast exams. BRCA testing is now available for patients with strong genetic history of female cancer. If interested contact the office. Engage in regular exercise. Avoid tobacco and illicit drugs. This lifestyle behavior pattern will lead to less health conditions and longer life span. If BMI greater than 25 dietary consult advised. Patient received above instructio ns, and questions have been answered. If you have any questions please call or respond to this email. Patient was made aware of the patient portal and may obtain a paper copy of today's plan if desired. Anxiety 41889034 F41.9 worsening symptomsma nagement options discussedw ill increase lexapro to 20mg daily - r/b/a reviewedco unseling encouraged precaution s discussed (if thoughts of harming self or others call 911 immediatel y)med check in 6-8 weeks [id number] JAZMIN Young [facility] [address],[place] [address] 06/14/2024 09:37:37 06/14/2024 10:36:36 Anxiety 90822837 F41.9 Doing well, symptoms controlled with lexapro 20mg dailyno negative SE'srefill s sent, r/b/a reviewedco unseling encouraged precaution s discussedR TC in 1 yr or sooner if needed Time spent in visit is a total of 18 mins with at least 50% of visit consisting of counseling and review of plan of care. [id number] JAZMIN Young [facility] [address],[place] [address] 01/23/2025 10:28:09 01/23/2025 11:26:22 Vaginitis 67234877 N76.0 vaginitis panel sentgc/ct/ trich testing sent per pt requestvul roselyn care guidelines discusseds afe sexual practices discussedw ill update pt with results when available Time spent in visit is a total of 18 mins with at least 50% of visit consisting of counseling and review of plan of care. Venereal d isease screening 422709771 Z11.3 [id number] JAZMIN [facility] [address],[place] [address] 05/15/2025 11:28:07 05/15/2025 12:25:31 Gynecologic examination [id number] Z01.222 [id number] WWEBC - declinedpa p due 2025gc/ct/ trich urine testing sentencour aged annual exam with PCP It is strongly advised to have an annual flu shot and up can obtain at most pharmacies .Discussed with patient & provided with informatio n regarding HPV vaccine if applicable . Encourage safe sexual practices, to use condoms and limit partners if not already in a monogamous relationsh ip.Do monthly self breast exams. BRCA testing is now available for patients with strong genetic history of female cancer. If interested contact the office. Engage in regular exercise. Avoid tobacco and illicit drugs. This lifestyle behavior pattern will lead to less health conditions and longer life span. If BMI greater than 25 dietary consult advised. Patient received above instructio ns, and questions have been answered. If you have any questions please call or respond to this email. Patient was made aware of the patient portal and may obtain a paper copy of today's plan if desired. Anxiety [id number] F41.9 Doing well, symptoms controlled with lexapro 20mg dailyno negative SE'srefill s sent, r/b/a reviewedco unseling encouraged precaution s discussedR TC in 1 yr or sooner if needed Time spent in visit is a total of 18 mins with at least 50% of visit consisting of counseling and review of plan of care. Venereal d isease screening [id number] Z11.3 [id number] ARIANA CORBIN NP [facility] [address],[place] [address] 08/14/2025 09:09:13 08/14/2025 09:32:57 Vaginal discharge [id number] N89.8 [id number] Reviewed the various causes of vaginal discharge and vaginitis symptoms, including both infectious (STD's, BV, yeast, others) and noninfecti ous (physiolog ic d/c, irritants/ allergens, DIV, others) causes. Reviewed good vulvar/vag inal hygiene and ways to reduce symptoms. Will r/o infection with vaginitis panel for yeast/bv/t rich. Will await results prior to treatment since physical exam was overall normal. [id number] Hung Naylor MD [facility] [address],[place] [address] 09/11/2025 09:51:37 09/11/2025 10:52:13 Unwanted fertility [id number] Z30.09 [id number] This patient presents for female sterilizat ion. [...] by Organization Details LastModified Time None Recorded Advance Directives Directive N: Payers Insurance Date Sequence Insurance Name Policy Number Policy Parekh Covered Member ID Parekh Member ID Guarantor Name 10/14/2023 PAYMENT PLAN Ron Wilder 10/07/2025 1 [facility] [id number] Ron Wilder [id number] Ron Wilder 10/09/2025 1 [place] [employer] [employer] (PPO) Felicia Wilder [id number] Ron Wilder 10/09/2025 1 [place] [id number] Felicia Wilder [id number] Ron Wilder 10/09/2025 1 [place] [id number] Felicia Wilder [id number] Ron Wilder 12/25/2023 PAYMENT PLAN Ron Wilder Notes Date Note Type Note Provider Name and Address Organization Details Recorded Time 4 text/html 29yopresents for med checkincreased lexapro to 20mg daily at LOVdoing well, symptoms controlled, less worryno negative SEdenies ever thoughts of harming self or others JAZMIN [facility] [address], [place], [address], [facility] 06/14/2024 10:29:10 5 text/html Vaginal/Vulvar ProblemReported by Patient 29yopresents for vaginal odor/dischargenoticed a fishy odor and discharge last weeksymptoms have sent went awaynoticed after using new scented soapwould like STi testing neg n/v/fneg flu-like symptomsneg pelvic pain JAZMIN Young [address], [place], [address], [facility] 01/23/2025 11:22:01 5 text/html Annual GYNReported by PatientGenitourinary symptomsFor menstrual cycle, patient reportsnormal menses. For urinary symptoms, patient reportsno hematuriaandno incontinence. For vulva, patient reportsno genital lesion. For vagina, patient reportsnormal vaginal discharge.Breast symptomsFor breast, patient reportsno breast pain,no breast lump, andno nipple discharge.ContraceptionFo r current contraception, patient reportssatisfied with current contraception.Endocrine symptomsFor sexual complaints, patient reportsno sexual complaints,no pain during intercourse, andnormal libido. For menopausal symptoms, patient reportsno menopausal symptomsandnormal vaginal lubrication.Psychological symptomsFor psychological symptoms, patient reportsno depression,no anxiety, andno pmdd.Preventative measuresFor preventive measures, patient reportsencourage self breast examination,encourage regular exercise,encourage no tobacco use, andencourage regular mammograms starting age [age]yo wweBC - withdrawallast pap 2022 : nilm doing well on lexapro Vanessa Elena liya, [facility] 05/15/2025 17:17:12 5 text/html 30 y/o female presents with c/o green/yellow discharge x 2 days after trying new scented soap. Denies odor, GI/urinary sx. Patient denies current symptoms. Jennifer nickerson, [facility] 08/14/2025 09:37:58 5 text/html This patient presents for female sterilization. [...] scheduled. Hung Naylor MD [address], [place], [address], [facility] 09/11/2025 10:49:57 OBGyn Episode Ob Episode Information Episode Created Date Number of Fetuses Patient Bloodtype Patient rh Status Prepregnancy Weight lbs Domestic Partner Domestic Partner Phone Father Name Web Merchant Status 05/10/20 21 1 CLOSED Fetus Data First Name Last Name Admitted to NICU Weight (g) Sex Living Outcome Pediatric Complications Fetus ID Race Codes Race Delivery Type , Spontane ous [id number] Micha Calculation Initial Micha Date Initial Exam Date Initial Exam Provider Initial Ultrasound Date Last Menstrual Period Date Ultra Sound Weeks Gestation 0 Eighteen To Twenty Week Micha Update Ultra Sound Date Fundal Height At Umbil Quickening Date Ultra Sound Latest Weeks Gestation Final Micha Confirmed By Final Micha Confirmed Date Final Micha Date Ultra Sound Latest Days Gestation 0 0 Menstrual History Last Menstrual Date Menses Monthly On Bcp Conception Prior Menses Frequency Hcg Plus Date Menarche Onset Age Delivery Information Delivery Date Delivery Type Labor Anesthesia Weeks Gestation Incision Type Labor Labor Length Hrs Delivered By Post Complications Tubal Sterilization Discharge Date Comments 0 Discharge Information Feeding Method Contraceptive Method Maternal HG B and HCT Levels Ob Episode Information Episode Created Date Number of Fetuses Patient Bloodtype Patient rh Status Prepregnancy Weight lbs Domestic Partner Domestic Partner Phone Father Name Web Merchant Status 06/07/20 21 1 A Negative 154 Ron Wilder CLOSED Fetus Data First Name Last Name Admitted to NICU Weight (g) Sex Living Outcome Pediatric Complications Fetus ID Race Codes Race Delivery Type Dahlia 3401.94 F true Full Term terminal meconium [id number] Vaginal Delivery Problems Problem Notes declines all vaccines Problem Name Start Date End Date Resolution Snomed Code Not e Group B Streptococcus carrier 06/10/2021 [id number] in urine - abx in labor RhD negative [id number] 04/16/21, 07/30/21, 10/24 Micha Calculation Initial Micha Date Initial Exam Date Initial Exam Provider Initial Ultrasound Date Last Menstrual Period Date Ultra Sound Weeks Gestation 12/22/2021 06/07/2021 05/10/2021 03/17/2021 7 Eighteen To Twenty Week Micha Update Ultra Sound Date Fundal Height At Umbil Quickening Date Ultra Sound Latest Weeks Gestation Final Micha Confirmed By Final Micha Confirmed Date Final Micha Date Ultra Sound Latest Days Gestation 0 [email or web address] 06/07/2021 12/22/19 22 0 Pre-alana Flowsheet Flowsheet Date 06/07/2021 Velazquez Score Blood Edema Fundus Height Fundus Units Glucose Ketones Leukocytes Nitrite Labor Signs Protein Cervic Dilation Cervic Effacement Cervic Station Type Weight in lbs Pre/Post Dialysis Refused Weight 154.734204386557 BP Diastolic BP Location Tested BP Systolic BP Type 81 130 Fetus Heart Rate Present A 135 Fetus Movement A No Comments Felicia is a 26yo at 1 1w5d for care. Her history is noncontributory except some spotting early on, got Rhogam. Us today normal NT. Not taking PNV since nauseated, will try them at night. No vomiting. Routine care. Flowsheet Date 06/07/2021 Velazquez Score Blood Edema Fundus Height Fundus Units Glucose Ketones Leukocytes Nitrite Labor Signs Protein Cervic Dilation Cervic Effacement Cervic Station Type Weight in lbs Pre/Post Dialysis Refused BP Diastolic BP Location Tested BP Systolic BP Type Fetus Heart Rate Present Fetus Movement Comments Flowsheet Date 07/05/2021 Velazquez Score Blood Edema Fundus Height Fundus Units Glucose Ketones Leukocytes Nitrite Labor Signs Protein Cervic Dilation Cervic Effacement Cervic Station neg none trace Type Weight in lbs Pre/Post Dialysis Refused Weight 154.031644658900 BP Diastolic BP Location Tested BP Systolic BP Type 81 123 Fetus Heart Rate Present A 155 Fetus Movement A No Comments Doing great! NO concerns. De clines AFP. No further bleeding. Anatomy next. Flowsheet Date 07/30/2021 Velazquez Score Blood Edema Fundus Height Fundus Units Glucose Ketones Leukocytes Nitrite Labor Signs Protein Cervic Dilation Cervic Effacement Cervic Station Type Weight in lbs Pre/Post Dialysis Refused BP Diastolic BP Location Tested BP Systolic BP Type Fetus Heart Rate Present Fetus Movement Comments Flowsheet Date 08/02/2021 Velazquez Score Blood Edema Fundus Height Fundus Units Glucose Ketones Leukocytes Nitrite Labor Signs Protein Cervic Dilation Cervic Effacement Cervic Station Type Weight in lbs Pre/Post Dialysis Refused BP Diastolic BP Location Tested BP Systolic BP Type Fetus Heart Rate Present Fetus Movement Comments Flowsheet Date 08/02/2021 Velazquez Score Blood Edema Fundus Height Fundus Units Glucose Ketones Leukocytes Nitrite Labor Signs Protein Cervic Dilation Cervic Effacement Cervic Station Type Weight in lbs Pre/Post Dialysis Refused Weight 155.61705369126 BP Diastolic BP Location Tested BP Systolic BP Type 68 111 Fetus Heart Rate Present Fetus Movement Comments anatomy incomplete f/u 4 wee ks, spotting stopped, precautions reviewed Flowsheet Date 08/29/2021 Velazquez Score Blood Edema Fundus Height Fundus Units Glucose Ketones Leukocytes Nitrite Labor Signs Protein Cervic Dilation Cervic Effacement Cervic Station Type Weight in lbs Pre/Post Dialysis Refused BP Diastolic BP Location Tested BP Systolic BP Type Fetus Heart Rate Present Fetus Movement Comments Flowsheet Date 08/30/2021 Velazquez Score Blood Edema Fundus Height Fundus Units Glucose Ketones Leukocytes Nitrite Labor Signs Protein Cervic Dilation Cervic Effacement Cervic Station neg none trace Type Weight in lbs Pre/Post Dialysis Refused Weight 165.851780371884 BP Diastolic BP Location Tested BP Systolic BP Type 78 121 Fetus Heart Rate Present A 146 Present Fetus Movement A Yes Comments patient states that had some spotting 1 day this week and has had some cramping. reviewed precautions try not to strain with bowel movements, f/u 4 weeks for gct, rhogam in october, reviewed us HC 9.4& rpt 4 weeks, anatomy complete Flowsheet Date 09/24/2021 Velazquez Score Blood Edema Fundus Height Fundus Units Glucose Ketones Leukocytes Nitrite Labor Signs Protein Cervic Dilation Cervic Effacement Cervic Station Type Weight in lbs Pre/Post Dialysis Refused BP Diastolic BP Location Tested BP Systolic BP Type Fetus Heart Rate Present Fetus Movement Comments Flowsheet Date 09/24/2021 Velazquez Score Blood Edema Fundus Height Fundus Units Glucose Ketones Leukocytes Nitrite Labor Signs Protein Cervic Dilation Cervic Effacement Cervic Station none trace Type Weight in lbs Pre/Post Dialysis Refused Weight 168.399260301765 BP Diastolic BP Location Tested BP Systolic BP Type 76 126 Fetus Heart Rate Present Fetus Movement A Yes Comments Doing well. Having a girl D nikkie Lily. Encouraged flu, tdap and covid vaccines. Discussed acog recommendation. Decided against childbirth classes. Planning epidural. Bottle feeding. Will start thinking about pedi. Flowsheet Date 10/08/2021 Velazquez Score Blood Edema Fundus Height Fundus Units Glucose Ketones Leukocytes Nitrite Labor Signs Protein Cervic Dilation Cervic Effacement Cervic Station neg none 28 trace Type Weight in lbs Pre/Post Dialysis Refused Weight 171.788563509847 BP Diastolic BP Location Tested BP Systolic BP Type 81 129 Fetus Heart Rate Present A 130 Fetus Movement A Yes Comments 3+glucose- had soda and chri stmas tree cake. BS 116. GCT was 97. Discussed dietary choices. Taking iron. Doing rhogam in 2 weeks. Discussed and encouraged flu, Tdap, and COVID vaccines- pt is hesitant. Had COVID in January. Flowsheet Date 10/23/2021 Velazquez Score Blood Edema Fundus Height Fundus Units Glucose Ketones Leukocytes Nitrite Labor Signs Protein Cervic Dilation Cervic Effacement Cervic Station neg none 30 none trace Type Weight in lbs Pre/Post Dialysis Refused Weight 172.753480643569 BP Diastolic BP Location Tested BP Systolic BP Type 87 129 Fetus Heart Rate Present A 135 Fetus Movement A Yes Comments Doing well. Will do Rhogam t his week. Precautions given. Declines all vaccines. Flowsheet Date 11/05/2021 Velazquez Score Blood Edema Fundus Height Fundus Units Glucose Ketones Leukocytes Nitrite Labor Signs Protein Cervic Dilation Cervic Effacement Cervic Station neg none 32 none trace Type Weight in lbs Pre/Post Dialysis Refused Weight 174.27158580871 BP Diastolic BP Location Tested BP Systolic BP Type 79 125 Fetus Heart Rate Present A 150 Fetus Movement A Yes Comments Doing well except muscular s houlder pain- massage, heat, flexeril. Got Rhogam. GBS pos- no cx needed. Flowsheet Date 11/27/2021 Velazquez Score Blood Edema Fundus Height Fundus Units Glucose Ketones Leukocytes Nitrite Labor Signs Protein Cervic Dilation Cervic Effacement Cervic Station trace 36 none trace 1cm 50% -3 Type Weight in lbs Pre/Post Dialysis Refused Weight 177.492917037726 BP Diastolic BP Location Tested BP Systolic BP Type 85 127 Fetus Heart Rate Present A 141 Fetus Movement A Yes Comments Pre admit done. Doing well. Labor precautions discussed. Flowsheet Date 12/02/2021 Velazquez Score Blood Edema Fundus Height Fundus Units Glucose Ketones Leukocytes Nitrite Labor Signs Protein Cervic Dilation Cervic Effacement Cervic Station neg none 36 none trace 1cm 50% Type Weight in lbs Pre/Post Dialysis Refused Weight 178.169759361522 BP Diastolic BP Location Tested BP Systolic BP Type 80 129 Fetus Heart Rate Present Fetus Movement A Yes Comments Doing ok, getting uncomforta ble. Shoulder pain resolved. GBS pos. Discussed labor, epidurals, mate first, carseat, etc. Questions answered. Getting nervous about delivery. support given. Flowsheet Date 12/10/2021 Velazquez Score Blood Edema Fundus Height Fundus Units Glucose Ketones Leukocytes Nitrite Labor Signs Protein Cervic Dilation Cervic Effacement Cervic Station neg none 37 trace 1cm 50% -2 Type Weight in lbs Pre/Post Dialysis Refused Weight 178.266756737390 BP Diastolic BP Location Tested BP Systolic BP Type 80 130 Fetus Heart Rate Present A 140 Fetus Movement A Yes Comments Doing ok. Great FM. GBS pos. No conctractions. Labor precautions given. Flowsheet Date 12/17/2021 Velazquez Score Blood Edema Fundus Height Fundus Units Glucose Ketones Leukocytes Nitrite Labor Signs Protein Cervic Dilation Cervic Effacement Cervic Station neg none 35 none trace 1cm 70% -2 Type Weight in lbs Pre/Post Dialysis Refused Weight 180.927912369394 BP Diastolic BP Location Tested BP Systolic BP Type 87 138 Fetus Heart Rate Present A 155 Fetus Movement A Yes Comments Doing well. Small spurts of contractions. GBS pos. Precautions given. She prefers IOL 40-41w. Will schedule. Discussed IOL process, questions answered. Menstrual History Last Menstrual Date Menses Monthly On Bcp Conception Prior Menses Frequency Hcg Plus Date Menarche Onset Age 0503/17/2021 Genetic Screening And Infection History Question Response Note Mental Retardation/Autism false Patient's Age Will Be 35 Years Or Older At Estim ated Date of Delivery false Thalassemia (Welsh, English, Mediterranean, Or Background): MCV < 80 false Neural Tube Defect (Meningomyelocele, Spina Bifi da, Or Anencephaly) false Congenital Heart Defect false Down Syndrome false Timo-Sachs (eg, Lutheran, Cajun, Korean-Anguillan) f alse Jacqueline Disease false Sickle Cell Disease Or Trait () false Hemophilia Or Other Blood Disorders false Muscular Dystrophy false Cystic Fibrosis false [place] false Intellectual Disability/Autism false If Yes, Was Person Tested For Fragile X? false Other Inherited Genetic Or Chromosomal Disorder false Maternal Metabolic Disorder (eg, Type 1 Diabetes , PKU) false Patient Or Baby's Father Had A Child With Defects Not Listed Above false Recurrent Loss, Or A Stillbirth false Medications (including Suppl ements, Vitamins, Herbs, OTC Drugs), Illicit/Recreational Drugs, Alcohol false If Yes, Agent(s) And Strength/Dosage false Any Other Genetic History false Live With Someone With TB Or Exposed To TB false Patient Or Partner Has History Of Genital Herpes false Rash Or Viral Illness Since Last Menstrual Perio d false History Of STD, Gonorrhea, Chlamydia, HPV, Syphi lis false Other Infection History false History of HIV false History of Hepatitis false Prior GBS-infected child false Hemoglobinopathy Or Carrier false Other Structural Defect false Recent Travel History Outside of Country false Delivery Information Delivery Date Delivery Type Labor Anesthesia Weeks Gestation Incision Type Labor Labor Length Hrs Delivered By Post Complications Tubal Sterilization Discharge Date Comments 2 Induce d Regional-Ep idural 40.2 false Linda Edgar MD GBS+ in urine Discharge Information Feeding Method Contraceptive Method Maternal HG B and HCT Levels Ob Episode Information Episode Created Date Number of Fetuses Patient Bloodtype Patient rh Status Prepregnancy Weight lbs Domestic Partner Domestic Partner Phone Father Name Web Merchant Status 05/18/20 1 A Negative 174 CLOSED Fetus Data First Name Last Name Admitted to NICU Weight (g) Sex Living Outcome Pediatric Complications Fetus ID Race Codes Race Delivery Type 2919.99 85 F true Full Term [id number] Vaginal Delivery Problems Problem Notes declined cf/sma/niptdeclines COVID vaccines Problem Name Start Date End Date Resolution Snomed Code Not e Depressive disorder [id number] lexapro RhD negative [id number] Rhogam @ 28wks - 09/17/23 Micha Calculation Initial Micha Date Initial Exam Date Initial Exam Provider Initial Ultrasound Date Last Menstrual Period Date Ultra Sound Weeks Gestation 11/22/2023 05/18/2023 04/08/2023 02/15/2023 8 Eighteen To Twenty Week Micha Update Ultra Sound Date Fundal Height At Umbil Quickening Date Ultra Sound Latest Weeks Gestation Final Micha Confirmed By Final Micha Confirmed Date Final Micha Date Ultra Sound Latest Days Gestation 0 [email or web address] 05/18/2023 11/22/19 24 0 Pre-alana Flowsheet Flowsheet Date 05/18/2023 Velazquez Score Blood Edema Fundus Height Fundus Units Glucose Ketones Leukocytes Nitrite Labor Signs Protein Cervic Dilation Cervic Effacement Cervic Station Type Weight in lbs Pre/Post Dialysis Refused BP Diastolic BP Location Tested BP Systolic BP Type Fetus Heart Rate Present Fetus Movement Comments Flowsheet Date 05/18/2023 Velazquez Score Blood Edema Fundus Height Fundus Units Glucose Ketones Leukocytes Nitrite Labor Signs Protein Cervic Dilation Cervic Effacement Cervic Station neg none none trace Type Weight in lbs Pre/Post Dialysis Refused Weight 174.25573252753 BP Diastolic BP Location Tested BP Systolic BP Type 73 117 Fetus Heart Rate Present A 170 Fetus Movement A No Comments Felicia is a 28yo at 1 3.1 for care. She had an uncomplicated term last . She declines COVID vaccines, did discuss risks of COVID in . She is having N/V still, reglan helping some and she is tolerating PO most of the time. Mood ok on escitalopram. Rh neg. Labs today, declines NIPT. Routine care. Flowsheet Date 06/17/2023 Velazquez Score Blood Edema Fundus Height Fundus Units Glucose Ketones Leukocytes Nitrite Labor Signs Protein Cervic Dilation Cervic Effacement Cervic Station neg none none trace Type Weight in lbs Pre/Post Dialysis Refused Weight 173.704530901272 BP Diastolic BP Location Tested BP Systolic BP Type 79 116 Fetus Heart Rate Present A 155 Fetus Movement A Yes Comments Doing well. N/V improved but not gone, zofran helping. Anatomy US next visit. Flowsheet Date 06/29/2023 Velazquez Score Blood Edema Fundus Height Fundus Units Glucose Ketones Leukocytes Nitrite Labor Signs Protein Cervic Dilation Cervic Effacement Cervic Station Type Weight in lbs Pre/Post Dialysis Refused BP Diastolic BP Location Tested BP Systolic BP Type Fetus Heart Rate Present Fetus Movement Comments Flowsheet Date 07/15/2023 Velazquez Score Blood Edema Fundus Height Fundus Units Glucose Ketones Leukocytes Nitrite Labor Signs Protein Cervic Dilation Cervic Effacement Cervic Station Type Weight in lbs Pre/Post Dialysis Refused BP Diastolic BP Location Tested BP Systolic BP Type Fetus Heart Rate Present Fetus Movement Comments Flowsheet Date 07/15/2023 Velazquez Score Blood Edema Fundus Height Fundus Units Glucose Ketones Leukocytes Nitrite Labor Signs Protein Cervic Dilation Cervic Effacement Cervic Station neg none none trace Type Weight in lbs Pre/Post Dialysis Refused Weight 178.714919498051 BP Diastolic BP Location Tested BP Systolic BP Type 85 130 Fetus Heart Rate Present A 155 Fetus Movement A Yes Comments Doing well, no concerns exce pt GERD with nausea, discussed OTCs. ANaotmy today complete and wnl. Needs more appts next visit. Flowsheet Date 08/12/2023 Velazquez Score Blood Edema Fundus Height Fundus Units Glucose Ketones Leukocytes Nitrite Labor Signs Protein Cervic Dilation Cervic Effacement Cervic Station neg none none trace Type Weight in lbs Pre/Post Dialysis Refused Weight 179.440405667206 BP Diastolic BP Location Tested BP Systolic BP Type 82 120 Fetus Heart Rate Present A 140 Fetus Movement A Yes Comments Doing well. GERD/nausea self resolved. GCT next. No concerns. Flowsheet Date 09/02/2023 Velazquez Score Blood Edema Fundus Height Fundus Units Glucose Ketones Leukocytes Nitrite Labor Signs Protein Cervic Dilation Cervic Effacement Cervic Station neg none 27 none trace Type Weight in lbs Pre/Post Dialysis Refused Weight 181.507369609606 BP Diastolic BP Location Tested BP Systolic BP Type 84 130 Fetus Heart Rate Present A 144 Fetus Movement A Yes Comments patient is having some pain and elevated heart rate. not daily, may be 3 times total usually when exits shower, to monitor if happens more often will plan monitor, declines flu and tdap, precautions reviewed f/u 2 weeks Flowsheet Date 09/16/2023 Velazquez Score Blood Edema Fundus Height Fundus Units Glucose Ketones Leukocytes Nitrite Labor Signs Protein Cervic Dilation Cervic Effacement Cervic Station neg none 28 none trace Type Weight in lbs Pre/Post Dialysis Refused Weight 183.918749046030 BP Diastolic BP Location Tested BP Systolic BP Type 75 126 Fetus Heart Rate Present A 140 Fetus Movement A Yes Comments getting rhogam today, doing well, +FM, denies complaints, precautions reviewed growth us at next visit Flowsheet Date 09/30/2023 Velazquez Score Blood Edema Fundus Height Fundus Units Glucose Ketones Leukocytes Nitrite Labor Signs Protein Cervic Dilation Cervic Effacement Cervic Station Type Weight in lbs Pre/Post Dialysis Refused BP Diastolic BP Location Tested BP Systolic BP Type Fetus Heart Rate Present Fetus Movement Comments Flowsheet Date 09/30/2023 Velazquez Score Blood Edema Fundus Height Fundus Units Glucose Ketones Leukocytes Nitrite Labor Signs Protein Cervic Dilation Cervic Effacement Cervic Station neg none none trace Type Weight in lbs Pre/Post Dialysis Refused Weight 184.735475530812 BP Diastolic BP Location Tested BP Systolic BP Type 77 116 Fetus Heart Rate Present Fetus Movement A Yes Comments patient is having pain. efw 46%, +FM, doing well, wanting iol around 11/15 precautions and education Flowsheet Date 10/14/2023 Velazquez Score Blood Edema Fundus Height Fundus Units Glucose Ketones Leukocytes Nitrite Labor Signs Protein Cervic Dilation Cervic Effacement Cervic Station neg none 32 none trace Type Weight in lbs Pre/Post Dialysis Refused Weight 185.821528805349 BP Diastolic BP Location Tested BP Systolic BP Type 80 119 Fetus Heart Rate Present A 142 Present Fetus Movement A Yes Comments patient is having trouble br eathing, pain and contractions. education and precautions, trouble breathing eased in reclined position, ok to sleep in recliner, gbs next visit IOL around 11/15 Flowsheet Date 10/30/2023 Velazquez Score Blood Edema Fundus Height Fundus Units Glucose Ketones Leukocytes Nitrite Labor Signs Protein Cervic Dilation Cervic Effacement Cervic Station neg trace none trace 2cm Type Weight in lbs Pre/Post Dialysis Refused Weight 184.902351771845 BP Diastolic BP Location Tested BP Systolic BP Type 83 122 Fetus Heart Rate Present Fetus Movement A Yes Comments patient is having discharge, swelling, itchy skin, and had RSV last week and had nausea and vomiting. doing well will check bile acids today, precautions reviewed gbs done f/u one week wants IOL 11/15 Menstrual History Last Menstrual Date Menses Monthly On Bcp Conception Prior Menses Frequency Hcg Plus Date Menarche Onset Age 0402/15/2023 Genetic Screening And Infection History Question Response Note Mental Retardation/Autism false Patient's Age Will Be 35 Years Or Older At Estim ated Date of Delivery false Thalassemia (Welsh, English, Mediterranean, Or Background): MCV < 80 false Neural Tube Defect (Meningomyelocele, Spina Bifi da, Or Anencephaly) false Congenital Heart Defect false Down Syndrome false Timo-Sachs (eg, Lutheran, Cajun, Korean-Anguillan) f alse Jacqueline Disease false Sickle Cell Disease Or Trait () false Hemophilia Or Other Blood Disorders false Muscular Dystrophy false Cystic Fibrosis false [place] false Intellectual Disability/Autism false If Yes, Was Person Tested For Fragile X? false Other Inherited Genetic Or Chromosomal Disorder false Maternal Metabolic Disorder (eg, Type 1 Diabetes , PKU) false Patient Or Baby's Father Had A Child With Defects Not Listed Above false Recurrent Loss, Or A Stillbirth false Medications (including Suppl ements, Vitamins, Herbs, OTC Drugs), Illicit/Recreational Drugs, Alcohol false If Yes, Agent(s) And Strength/Dosage false Any Other Genetic History false Live With Someone With TB Or Exposed To TB false Patient Or Partner Has History Of Genital Herpes false Rash Or Viral Illness Since Last Menstrual Perio d false History Of STD, Gonorrhea, Chlamydia, HPV, Syphi lis false Other Infection History false History of HIV false History of Hepatitis false Prior GBS-infected child false Hemoglobinopathy Or Carrier false Other Structural Defect false Recent Travel History Outside of Country false Delivery Information Delivery Date Delivery Type Labor Anesthesia Weeks Gestation Incision Type Labor Labor Length Hrs Delivered By Post Complications Tubal Sterilization Discharge Date Comments 3 Induce d Regional-Ep idural 37.1 false Damari Kirkpatrick CNM depressiv e disorder, rhd negative, cholestas is Discharge Information Feeding Method Contraceptive Method Maternal HG B and HCT Levels
--- OUTSIDE RECORDS SUMMARY | 2025-10-10 01:27 | XMS_ITS | Continuity of Care Document ---
Author Organization [facility] [place] Address [address] [place] [address] Assessment No assessment recorded. Plan of Treatment Reminders Order Date Submit Date Provider Last Modified By Organization Details Last Modified Time Details Appointments SURG Salpingec dhara 2024 10:30A Gilmer REGAN MD Not available Not available Not available SURG POST OP 2024 08:30A Gilmer REGAN MD Not available Not available Not available Lab unlisted lab - [facility] swab, HEATHER 2024 025 [facility] (Lab), [address], [place], [address], 08/15/2025 22:01:23 Referral None recorded. Procedures None recorded. Surgeries None recorded. Imaging None recorded. Medication Orders None recorded. Patient TargetsNo targets recorded. Patient InstructionsNo instructions recorded. Reason for Referral None Reported. Results Created Date Observation Date Name Description Value Unit Range Abnormal Flag Note LastModifiedBy Organization Detail LastModifiedTime 08/14/2008/14/2025 [facility] bacterial vaginosis (bv), tma [...] or negat luiz statu s. Not Available [facility] (Lab) [address], [place], [address], 08/15/2025 22:01:23 08/14/20 25 08/14/2025 [facility], HEATHER concetta species, tma Negati ve negati ve Not Available [facility] (Lab) [address], [place], [address], 08/15/2025 22:01:23 08/14/20 25 08/14/2025 [facility] SWAB, HEATHER concetta glabrata, tma Negati ve negati ve Not Available [facility] (Lab) [address] [place], [address], 08/15/2025 22:01:23 08/14/20 25 08/14/2025 [facility] [...] Ampli ficat ion (TMA) . Not Available [facility] (Lab) [address], [place], [address], 08/15/2025 22:01:23 Result Notes None recorded. 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 3 16:33:41 RhD negative 594231631 Completed 04/16/21, 07/30/21, 10/24 Sola Valderramanenstie hl null, [facility] 2 13:22:17 RhD negative 612987796 Completed Rhogam @ 28wks - 09/17/23 Essie Spence null, [facility] 3 16:33:41 Depressi ve disorder 94460618 Active lexapro Essie Spence null, [facility] 3 16:33:41 Depressi ve disorder 09084243 Completed lexapro Essie Spence null, [facility] 3 16:33:41 Gestatio n less than 9 weeks 843100800 Completed 201805/10/2021 Less than 8 weeks gestatio n of pregnanc y;Record ed Elsewher e: No [facility]at [facility] S ource: EHR Cyber Policy And Strategy Planner amaya: N Practi ce ID: [id number] Tyler lable Time: 10:00:00 AM Amanda Foster [facility], [facility] 1 09:49:27 Pregnanc y detectio n examinat ion Completed 201805/10/2021 Encounte r for pregnanc y test, result positive ;Practic e ID: 0001 Amanda Foster [facility], [facility] 09:49:31 Threaten ed miscarri age [id number] Completed 201905/10/2021 Threaten ed ;Recorde d Elsewher e: No [facility] ource: EHR Cyber Policy And Strategy Planner amaya: N Practi ce ID: 0001 Tyler lable Time: 10:15:00 AM Amanda Foster [facility] 09:49:33 Finding of contents of cervix 810446706 Completed 201905/10/2021 Weeks of gestatio n of pregnanc y not specifie d;Record ed Elsewher e: No Locat ion: [facility] S ource: EHR Cyber Policy And Strategy Planner amaya: N Practi ce ID: 0001 Tyler lable Time: 09:45:00 AM Amanda nickerson, [facility] 1 09:49:23 Finding of viabilit y of pregnanc y [id number] Completed 201905/10/2021 Pregnanc y w inconclu sive viabilit y, unsp;Pra ctice ID: 0001 Amanda Foster [facility], [facility] 1 09:49:26 Missed miscarri age [id number] Completed 201905/10/2021 Missed ;Recorde d Elsewher e: No Locat ion: [facility] S ource: EHR Cyber Policy And Strategy Planner amaya: N Practi ce ID: 0001 Tyler lable Time: 01:30:00 PM Amanda Kristin [facility], [facility] 1 09:49:29 Pregnanc y [id number] Completed 202001/17/2022 Essie Spence [facility], [facility] 3 16:33:47 Group B Streptoc occus carrier [id number] 03 Completed 2020 in urine - abx in labor Sola camara [facility], [facility] 2 13:22:17 Pregnanc y [id number] Completed 202211/02/2023 Essie Spence [facility], [facility] 3 16:33:47 Problem Notes None recorded. Procedures Surgical History Date Name Laterality Status Provider Name and Address Organization Details Recorded Time 3 Date of Last Pap Smear completed Amanda Wadetz [facility] 04/08/2023 11:53:34 2 Nexplanon Removal completed Linda Edgar MD [address], [place], [address], [facility] 09/30/2022 09:24:06 Control Implant Insertion completed Linda Edgar MD [address], [place], [address], [facility] 03/07/2022 11:14:11 Imaging Results None [...] Prescrib giuliana Bustamante e: No [facility] M odify By: [email or web address] Radha r DateTime : 11/21/19 04:45:00 PM [...] Updated DateTime 08/14/2025 162.56 cm 27.5 kg/m2 77905.78 g 116/75 mm[Hg] Jennifer Auguste [facility] 08/14/2025 09:19:40 Social History Question Answer Notes LastModified by Organizat ion Details LastModified Time Tobacco Smoking Status Former Smoker Vanessa Foxney [facility] 12/02/2023 14:30:20 Do You Have An Advance Directive? No Information not available 04/08/2023 If You Are , What Was Your Level Of Alcohol Consumption Prior To ? None [email or web address] Information not available 12/02/2023 Are You Blind Or Do You Have Difficulty Seeing? No [email or web address] Information not available 04/08/2023 What Is Your Level Of Caffeine Consumption? Occasional [email or web address] Information not available 04/08/2023 How Much Tobacco Do You Chew? None [email or web address] Information not available 04/08/2023 In The 14 Days Before Symptom Onset, Have You Had Close Contact With A Laboratory-confir med COVID-19 While That Case Was Ill? No [email or web address] Information not available 04/08/2023 In The 14 Days Before Symptom Onset, Have You Had Close Contact With A Person Who Is Under Investigation For COVID-19 While That Person Was Ill? No Information not available 04/08/2023 Have You Been To An Area Known To Be High Risk For COVID-19? No [email or web address] Information not available 04/08/2023 Are You Deaf Or Do You Have Serious Difficulty Hearing? No [email or web address] Information not available 04/08/2023 What Type Of Diet Are You Following? REGULAR [email or web address] Information not available 04/08/2023 What Is The Highest Grade Or Level Of School You Have Completed Or The Highest Degree You Have Received? [id number] Information not available 04/08/2023 Are There Any Guns Present In Your Home? Yes [email or web address] Information not available 04/08/2023 Have You Ever Been Counseled For Unhealthy Alcohol Use? No [email or web address] Information not available 12/02/2023 Do You Use Protection During Sex? No [email or web address] Information not available 04/08/2023 Do You Use Your Seat Belt Or Car Seat Routinely? Yes [email or web address] Information not available 04/08/2023 Do You Have Smoke And Carbon Monoxide Detectors In Your Home? Yes [email or web address] Information not available 04/08/2023 How Much Tobacco Do You Smoke? No [email or web address] Information not available 04/08/2023 Do You Use Sunscreen Routinely? Yes [email or web address] Information not available 04/08/2023 Has Tobacco Cessation Counseling Been Provided? No [email or web address] Information not available 12/02/2023 Have You Used IV Drugs? No [email or web address] Information not available 04/08/2023 Do You Have Difficulty Walking Or Climbing Stairs? No [email or web address] Information not available 12/02/2023 Sex: Unknown Functional Status Question Answer Note LastModified by Organizat ion Details LastModified Time Do you use any illicit or recreational drugs? No [email or web address] Information not available 04/08/2023 Do you or have you ever used any other forms of tobacco or nicotine? No [email or web address] Information not available 12/02/2023 What is your level of alcohol consumption? None [email or web address] Information not available 04/08/2023 Are you able to walk independently without assistance or assistive devices? YESWOREST [email or web address] Information not available 04/08/2023 Are you able to care for yourself independently? 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 No [email or web address] Information not available 12/02/2023 What is your exercise level? Occasional [email or web address] Information not available 04/08/2023 Mental Status Question Answer Note LastModified by Organization D etails LastModified Time Do you feel stressed (tense, restless, nervous, or anxious, or unable to sleep at night)? [id number] [email or web address] Information not available 04/08/2023 Family History Relationship Description Onset Age of this Age Resolved Age Notes LastModified by Organization Details LastModified Time Father Diabetes mellitus [email or web address] Not available 10/30 11:06:31 Brother Asthma [email or web address] Not availabl e 10/30/2023 11:06:31 Paternal Grandmother Malignant neoplasm of breast unsure age [email or web address] Not available 09/11/2025 09:52:14 Medical History Condition [...] ICD10 Code Diagnosis IMO Codes Diagnosis Note [id number] ARIANA CORBIN NP [place] [address] [address] 08/14/2025 09:09:13 08/14/2025 09:32:57 Vaginal discharge [id number] N89.8 08825 Reviewed the various causes of vaginal discharge and vaginitis symptoms, including both infectious (STD's, BV, yeast, others) and noninfecti ous (physiolog ic d/c, irritants/ allergens, DIV, others) causes. Reviewed good vulvar/vag inal hygiene and ways to reduce symptoms. Will r/o infection with vaginitis panel for yeast/bv/t rich. Will await results prior to treatment since physical exam was overall normal. Health Concerns Section Related Observation LastModified by Organization Detai ls LastModified Time None Recorded Concern Status LastModified by Organization Details LastModified Time None Recorded Payers Encounter Date Sequence Insurance Name Policy Number Policy Parekh Covered Member ID Parekh Member ID Guarantor Name 08/14/2025 1 [facility] [id number] Ron Wilder [id number] Ron Wilder Notes Date Note Type Note Provider Name and Address Organization Details Recorded Time 08/14/2025 text/html 30 y/o female presents with c/o green/yellow discharge x 2 days after trying new scented soap. Denies odor, GI/urinary sx. Patient denies current symptoms. Jennifer Auguste [facility] 08/14/2025 09:37:58 OBGyn Episode No OBEpisode recorded.
--- OUTSIDE RECORDS SUMMARY | 2025-10-10 01:28 | XMS_ITS | Clinical Summary ---
Author Organization [employer] [place] Address [address] [place] [address] Phone Care Team Providers Care Social Work Lecturer Name Role Phone Jaden Mcleod MD Primary Care Provider [phone] Allergies No known active allergies Medications escitalopram oxalate (LEXAPRO) 10 mg tablet Take 10 mg by mouth daily. 11/10/2022 Active dicyclomine (BENTYL) 10 mg capsule Take 1 Capsule (10 mg) by mouth 4 times daily. 90 Capsule 3 12/08/2022 Active Active Problems No known active problems Social History Tobacco Use Types Packs/Day Years Used Date Smoking Tobacco: Never Smokeless Tobacco: Never Tobacco Cessation:Counseling Given: Not Answered Comments Unknown Sex and Gender Information Value Date Recorded Sex Assigned at Not on file Legal Sex Female 4:20 PM MOHEL Gender Identity Not on file Sexual Orientation Not on file Last Filed Vital Signs Vital Sign Reading Time Taken Comments Blood Pressure 111/71 12/08/2022 8:11 AM MOHEL Pulse 77 12/08/2022 8:11 AM MOHEL Temperature 36.4 C (97.6 F) 12/08/2022 8:11 AM MOHEL Respiratory Rate - - Oxygen Saturation 97% 12/08/2022 8:11 AM MOHEL Inhaled Oxygen Concentration - - Weight 79.8 kg (176 lb) 12/08/2022 8:11 AM MOHEL Height 160 cm (5' 3) 12/08/2022 8:11 AM MOHEL Body Mass Index 31.18 12/08/2022 8:11 AM MOHEL Plan of Treatment Health Maintenance Due Date Last Done Comments DTAP/TDAP/TD VACCINES (1 - Tdap) 2016 HEPATITIS B VACCINES (1 of 3 - 19+ 3-dose series) 04/2016 CERVICAL CANCER SCREENING 2018 HPV/Cotest (21-29) 2018 PAP SMEAR 2018 HPV VACCINES (1 - 3-dose SCDM series) 2024 Preventative Visit- Commercial 11/16/2024 12/08/2022 INFLUENZA VACCINE (#1) 2025 Insurance [facility] Care Teams Social Work Lecturer Relationship Specialty Start Date End Date Jaden Mcleod MD [address] [place] [address] [address] [place] [id number] PCP - General Family Practice 12/08/22
[2025-10-10] MEDS: KETOROLAC 15 MG/ML VIAL (*BKC) IV PUSH (08:55)
[2025-10-10] MEDS: LACTATED RINGERS 1,000 ML 30 ML IV CONT (08:55)
[2025-10-10] MEDS: ACETAMINOPHEN 500 MG TABLET 1000 MG PO (08:55)
[2025-10-10 09:26] LABS: BEDSIDEPREGUCG Negative (Negative)
--- NOTE | 2025-10-10 09:41 | P.HP_ITS ---
H&P: HPI History of Present Illness Date/Time: 10/10/25 09:41 Chief Complaint: Unwanted fertility Narrative: This patient is a 30-year-old female with unwanted fertility. We have agreed to perform laparoscopic bilateral salpingectomy. She understands the risks, benefits, and alternatives. She has completed informed consent process is ready to proceed. The patient understands the details of the procedure. The procedure has been explained in detail. She understands the risks. She understands that injuries may occur that result in hospitalization, more surgery, and severe illness. She understands risk of hemorrhage and infection. She denies any chest pain or shortness of breath. She denies any nausea, vomiting, fever, chills. Review of Systems Review of Systems: All systems reviewed & are unremarkable except as noted in HPI and below Constitutional: Constitutional: Denies chills, Denies fatigue, Denies fever(s) and Denies weakness Eyes: Eyes: Denies blurry vision, Denies change in vision, Denies loss of peripheral vision, Denies loss of vision, Denies other visual disturbances and Denies eye pain ENT: Denies vertigo, Denies dizziness, Denies hearing loss, Denies mouth pain, Denies nasal obstruction, Denies neck mass and Denies neck pain Cardiovascular: Cardiovascular: Denies chest pain, Denies diaphoresis, Denies syncope, Denies leg edema and Denies dyspnea Respiratory: Respiratory: Denies chest congestion, Denies cough, Denies hemoptysis, Denies dyspnea and Denies wheezing Gastrointestinal: Gastrointestinal: Denies abdominal pain, Denies constipation, Denies diarrhea, Denies nausea and Denies vomiting Genitourinary: Genitourinary: Denies hematuria, Denies change in libido, Denies nocturia, Denies genital lesions, Denies flank pain and Denies urinary urgency Musculoskeletal: Musculoskeletal: Denies abnormal gait, Denies back pain, Denies myalgias, Denies arthralgias, Denies joint swelling, Denies muscle weakness and Denies neck pain Integumentary/Breasts: Skin/Breast: Denies swelling, Denies breast pain, Denies breast mass, Denies dry skin, Denies nipple discharge, Denies unusual bruising and Denies jaundice Neurologic: Denies Neuro-related abnormal movements, Denies Abnormal speech present, Denies abnormal gait, Denies behavioral changes, Denies confusion, Denies vertigo, Denies dizziness, Denies syncope, Denies loss of vision, Denies memory loss, Denies convulsions and Denies weakness Psychiatric: Psychiatric: Denies abnormal sleep pattern, Denies behavioral changes, Denies change in libido, Denies confusion, Denies depression, Denies anhedonia and Denies memory loss Endocrine: Endocrine: Reports no additional endocrine complaints, Denies change in libido and Denies fatigue Hematologic/Lymphatic: Hematologic/Lymphatic: Reports no additional hematologic/lymphatic complaints Allergic/Immunologic: Allergic/Immunologic: Reports no additional allergic/immunologic complaints and Denies wheezing PMFSH Past Medical History Medical History (Updated 10/10/25 @ 09:43 by Hung Naylor MD) Spontaneous Surgical History Surgical History No history of previous surgery Family History Family History Father Diabetes mellitus Social History Social History Smoking status: Never smoker Alcohol intake: former Substance use: never Do You Feel Safe in your Home?: Yes Lack of Transportation: No Lack of Food: Never True Current Housing: I Have Housing Concerned About Future Housing: No Difficulty Paying Gas/Electric Bills: No Difficulty Paying for Meds: No Currently Unemployed: No Education: High School Diploma/GED Difficulty w/ Childcare or Family Care: No Living arrangements: with family Gender identity (if verbalized by the patient): Female Spiritual care concerns: No Meds Home Medications and Allergies Home Medications ?Medication ?Instructions ?Recorded ?Confirmed ?Type escitalopram oxalate 20 mg tablet 20 mg PO DAILY 09/2910/10/25 History bughbvlfagly-Qh-cotb-minerals 18 1 tablet PO DAILY 10/10/25 History mg-0.4 mg tablet Allergies Allergy/AdvReac Type Severity Reaction Status Date / Time No Known Allergies Allergy Verified 10/10/25 09:27 Vital Signs Vital Signs - 24 hr 10/10/25 08:55 Temperature 98.1 F Pulse Rate 74 Respiratory Rate 16 Blood Pressure 122/78 Pulse Oximetry 100 Oxygen Delivery Room Air Exam Const: General: cooperative, healthy appearing, comfortable and no acute distress Orientation/consciousness: oriented to person, oriented to place and oriented to time HENMT: Head: normal to inspection Ears: external ears normal Face/ Nose/Sinus: Normal external nose present and normal facial exam Face and sinus: normal facial exam Eyes: General: appearance normal, both eyes and all related structures Neck: Neck: normal visual inspection, trachea midline and supple Resp: Auscultation: clear to auscultation bilaterally, no crackles, no rales, no rhonchi and no wheezes Cardio: Rate: regular rate Rhythm: regular rhythm Heart sounds: no click, no murmurs and no rubs GI: GI Palp: No abdominal tenderness, No Soft to palpation, No Tenderness to palpation present (GI) and No Palpable mass present Auscultation: normal bowel sounds Skin: General skin exam: normal color and no rashes or lesions noted Neuro: General: oriented to person, oriented to place and oriented to time Extrem: General: normal to inspection, no joint enlargement, no clubbing, cyanosis or edema, no pedal edema and no calf tenderness Psych: Appearance: grossly normal Mental Status: mental status grossly normal Speech and movement: Normal speech and movement present Assessment and Plan Assessment and plan (1) Unwanted fertility: Code(s): Z30.09 - Encounter for other general counseling and advice on contraception Status: Acute Plan This patient is a 30-year-old female with unwanted fertility. We have agreed to perform laparoscopic bilateral salpingectomy. She understands the risks, benefits, and alternatives. She has completed informed consent process is ready to proceed.
--- NOTE | 2025-10-10 09:44 | WPDHPUPDATE1 ---
History and Physical Update Update Date/Time: 10/10/25 09:44 History and Physical has been reviewed, including an updated exam of the patient. There are NO changes in the patient's condition. Risks, benefits, and alternatives have been discussed and questions answered. Patient agrees to proceed with procedure.
--- NOTE | 2025-10-10 09:50 | WPDANESEPPF ---
Anes - Initial Pre Proc Eval Procedure: Operation Date: 10/10/25 10:30 Proposed Procedures p Bilateral Laparoscopic Salpingectomy - Hung Naylor MD Date/Time: 10/10/25 09:50 Surgeon: Hung Naylor MD Pre Op Diagnosis: unwanted fertility Patient Data Age: 30 Gender: F Height: 1.63 m Weight: 72.3 kg Last Vital Signs Temp 36.7 C 10/10/25 08:55 Pulse 74 10/10/25 08:55 Resp 16 10/10/25 08:55 BP 122/78 10/10/25 08:55 Pulse Ox 100 10/10/25 08:55 O2 Del Method Room Air 10/10/25 08:55 Allergies Allergy/AdvReac Type Severity Reaction Status Date / Time No Known Allergies Allergy Verified 10/10/25 09:27 Home Medications ?Medication ?Instructions ?Recorded ?Confirmed ?Type escitalopram oxalate 20 mg tablet 20 mg PO DAILY 09/29/25 10/10/25 History jaggtwohniyl-Ec-lzgy-minerals 18 1 tablet PO DAILY 09/29/25 10/10/25 History mg-0.4 mg tablet Laboratory Tests 10/10/25 08:30 POC Urine HCG, Qual Negative (Negative) Patient hx anesthesia problems: none Family hx anesthesia problems: none Results Review: All pre-operative results and documents have been reviewed as part of the pre-operative evaluation. [facility] Past Medical History Medical History Spontaneous Surgical History Surgical History No history of previous surgery Family History Family History Father Diabetes mellitus Social History Social History Smoking status: Never smoker Alcohol intake: former Substance use: never Do You Feel Safe in your Home?: Yes Lack of Transportation: No Lack of Food: Never True Current Housing: I Have Housing Concerned About Future Housing: No Difficulty Paying Gas/Electric Bills: No Difficulty Paying for Meds: No Currently Unemployed: No Education: High School Diploma/GED Difficulty w/ Childcare or Family Care: No Living arrangements: with family Gender identity (if verbalized by the patient): Female Spiritual care concerns: No Anes - Eval Final PreProcedure Day of Procedure 10/10/25 09:50 Patient weight: overweight Heart: regular rate and rhythm Lungs: clear to auscultation Airway: Mallampati scale class II Neurological: alert and oriented Last oral intake: >/= 8 hours ASA classification: II Emergent: no Anesthetic plan: proceed Anesthesia type and monitoring: general GIVS and standard monitoring Results Review: All pre-operative results and documents have been reviewed as part of the pre-operative evaluation. Informed Consent: The patient's anesthetic plan and its attendant risks and benefits were discussed with the patient/family/POA. Questions were solicited and answers provided to the satisfaction of the patient/family/POA.
--- NOTE | 2025-10-10 10:24 | S_PTH ---
PATIENT: Felicia Wilder LOC: [facility] U#:[id number] AGE/SX: 30/F ROOM: RE10/10/[address]: Hung Naylor MD : 1995 BED: DIS: 10/10/2025 SPEC #: [id number] RECD: 10/10/25 11:45 STATUS: AYAKA REJoey #: [id number] DEIRDRE: 10/10/25 10:[address]: Hung Naylor DEPT: [facility] Surgical RECD BY: Cherie Griggs Tissues: A - Fallopian Tube Bilateral Procedures: Gross and Microscopic Level 2 Hematoxylin and Eosin Stain
--- NOTE | 2025-10-10 10:36 | P.OP_ITS ---
Procedure Note - Detailed Date of Procedure 10/10/25 Pre-op Diagnosis unwanted fertility Post-op Diagnosis Same Procedure Performed Laparoscopic bilateral salpingectomy Surgeon Hung Nyalor MD Anesthesia General Indications Unwanted fertility Findings Normal pelvic anatomy Description of Procedure The patient was taken the operating room. She was prepped and draped in the dorsal lithotomy position after induction of general anesthesia. A 5 mm skin incision was made in the left upper quadrant of the abdominal skin. A 5 mm trocar was inserted the intra-abdominal cavity under direct visualization of the scope. Pneumoperitoneum was achieved. A 5 mm trocar was inserted in the left lower quadrant identical fashion. A 5 mm infraumbilical trocar was inserted in identical fashion as well. The bilateral fallopian tubes were removed. This was done by using a LigaSure cautery. The mesosalpinx adjacent to the tube was cauterized transected with LigaSure. This was initiated in the area the ovary and in a stepwise fashion moved medially to the area of the cornu of the uterus. Once there the fallopian tube was cauterized and transected. This was done in identical fashion on each side. The fallopian tubes were taken out through the left lower quadrant trocar site. The pneumoperitoneum was reduced. The trocars removed. The skin was closed with subcuticular 4 Monocryl and covered with Derm abond. She was taken to cover stable condition. Sponge lap and needle counts were correct x2. Estimated Blood Loss 5 Drains No Packing No Pathology Yes Complications No immediate complications Condition Stable Disposition PACU
[2025-10-10] MEDS: oxyCODONE HCL (*CRX) 5 MG TAB IR PO (11:40)
== END 2025-10-10 12:33 | disposition home or self-care (01) ==
PROVIDERS: Visit Provider Obstetrics & Gynecology
PROC: (CPT 49320; principal; 2025-10-10 10:30)
DX: Z30.2 Encounter for sterilization (principal)
CPT/HCPCS: 58661; 88302; A9270; J1100; J1885; J2250; J2270; J2704; J7030; J7120